=== PATIENT | male | born 1990 | race Caucasian/White ===

== ENCOUNTER 2017-05-28 17:10 | Inpatient (IN) | payer OTHER ==
[2017-05-28 18:18] LABS: Basophils % (A) 0 %; CH 31.3; CHCM 36.4; Eosinophils # (A) 0.1 k/uL (0-0.7); Eosinophils % (A) 1 %; HCT 39.3 % (39.0-53.0); HGB 14.7 gm/dL (13.0-17.5); Luc # (Auto) 0.12; Luc % (Auto) 1; Lymphocytes # (A) 2.1 k/uL (1.0-4.8); Lymphocytes % (A) 21 %; MCH 32.2 pg (25.0-35.0); MCHC 37.3 g/dL (31.0-37.0); MCV 86.4 fL (80.0-100.0); Mean Platelet Volume 7.8; Monocytes # (A) 0.5 k/uL (0-1.0); Monocytes % (A) 5 %; Neutrophils # (A) 7.3 k/uL (1.3-7.7); Neutrophils % (A) 72 %; RBC 4.55 m/uL (4.30-5.90); RDW 12.5 % (11.5-15.5); WBC 10.2 k/uL (3.8-10.6); WBC (Perox) 9.53
[2017-05-28 18:27] LABS: ALT 29 U/L (21-72); AST 17 U/L (17-59); Alkaline Phosphatase 80 U/L (38-126); Anion Gap 13 mmol/L; Blood Urea Nitrogen 19 mg/dL (9-20); Calcium 9.2 mg/dL (8.4-10.2); Carbon Dioxide 24 mmol/L (22-30); Chloride 101 mmol/L (98-107); Glucose 365 mg/dL (74-99); Non-African American GFR(MDRD) >60 (>60 ml/min/1.73 sqM); Potassium 4.3 mmol/L (3.5-5.1); Sodium 138 mmol/L (137-145); Total Bilirubin 0.4 mg/dL (0.2-1.3); Total Protein 6.8 g/dL (6.3-8.2)
--- NOTE | 2017-05-28 18:42 | XR ---
EXAMINATION TYPE: XR chest 2V DATE OF EXAM: 05/28/2017 COMPARISON: December 01, 2009 HISTORY: Left-sided neck swelling with change in voice and fixation of bubbles in upper chest. TECHNIQUE: Frontal and lateral views of the chest are obtained. FINDINGS: There is widespread subcutaneous emphysema over the right and left hemithorax and over the right upper extremity. There is also evidence of mediastinal emphysema. No definite pneumothorax. No pneumoperitoneum. The lungs appear to be clear bilaterally. The cardiac silhouette is unremarkable. The skeletal structures are unremarkable. IMPRESSION: WOULD ADVISE NONCONTRAST CHEST CT TO FULLY CHARACTERIZE THE AIR LEAK.
--- NOTE | 2017-05-28 19:46 | CT ---
EXAMINATION TYPE: CT chest wo con DATE OF EXAM: 05/28/2017 COMPARISON: Chest radiographs 05/28/2017 6:05 PM HISTORY: COUGH AND JUAREZ WITH CRACKLE UNDER SKIN TO CHEST AREA. NO KNOWN INJURY. CT DLP: 434.02 mGycm. Automated Exposure Control for Dose Reduction was Utilized. TECHNIQUE: CT scan of the thorax is performed without IV contrast. FINDINGS: There is a striking volume of subcutaneous emphysema throughout the chest circumferentiall y, with sparing of only the left posterior chest. There is a striking volume of associated pneumomedi astinum and intraspinal extramedullary air. There is subtle pneumopericardium. There is no definite abnormal gas collection in the visualized upper abdomen. There is no pneumothora x. Tracheobronchial anatomy appears to be intact. The lungs are clear and well expanded bilaterally, and the pleural spaces are negative. The skeletal structures are negative. IMPRESSION: WIDESPREAD ABNORMAL GAS COLLECTIONS.
--- NOTE | 2017-05-28 19:53 | CT ---
EXAMINATION TYPE: CT soft tissue neck wo con DATE OF EXAM: 05/28/2017 HISTORY: COUGH AND JUAREZ WITH CRACKLE UNDER SKIN TO CHEST AREA. NO KNOWN INJURY. COMPARISON: NONE CT DLP: 620.32 mGycm. Automated Exposure Control for Dose Reduction was Utilized. TECHNIQUE: Departmental protocol, with this CT neck study accompanying CT chest study. FINDINGS: There is a striking volume of symmetric and circumferential subcutaneous emphysema through out the soft tissues of the neck, dissecting throughout the bilateral adipose planes and extending up to the skull base. There is also associated intraspinal extramedullary air. Imaging extended up to include the posterior cranial fossa; there is no visualized intracranial air at this time. The airway appears intact. The skeletal structures and visualized paranasal sinuses and mastoid sinus air cells and middle ear c avities are intact. IMPRESSION: WIDESPREAD ABNORMAL GAS COLLECTIONS.
[2017-05-28] MEDS ORDERED: SODIUM CHLORIDE 0.9% 1,000 ML IV ONE (21:45)
[2017-05-28] MEDS ORDERED: VANCOMYCIN 1,000 MG in SODIUM CHLORIDE 0.9% 250 ML IVPB STA (21:45)
[2017-05-28] MEDS ORDERED: ONDANSETRON 4 MG/2 ML VIAL IVP PRN (22:06)
[2017-05-28] MEDS ORDERED: ACETAMINOPHEN TAB 325 MG TAB PO PRN (22:06)
[2017-05-28] MEDS ORDERED: NALOXONE 0.4 MG/ML 1 ML VIAL IV PRN (22:06)
[2017-05-28] MEDS: SODIUM CHLORIDE 0.9% 1,000 ML IV SCH (22:19)
--- NOTE | 2017-05-28 22:19 | ED ---
General Adult HPI - General Chief complaint: Shortness of Breath Stated complaint: JUAREZ,throat swelling Time Seen by Provider: 05/28/17 17:47 Source: patient, RN notes reviewed Mode of arrival: ambulatory Limitations: no limitations - History of Present Illness Initial comments: 26 yo male with past medical history of type 1 diabetes presents with a 2 day history of dry cough. Patient was found to have a fever in triage, however he denies fever or chills. Denies sick contacts. Patient presented for evaluation of neck swelling and change in his voice. Patient denies any choking episode, denies nausea or vomiting denies chest or neck trauma. Patient states he he was told by previous physician that he had some bronchial scarring. - Related Data Home Medications Medication Instructions Recorded Confirmed Insulin Aspart (For Pump) [NovoLOG See Protocol SQ-PUMP CONTINUOUS 05/28/17 (For Pump)] Allergies Allergy/AdvReac Type Severity Reaction Status Date / Time No Known Allergies Allergy Verified 05/28/17 19:17 Review of Systems ROS Statement: Those systems with pertinent positive or pertinent negative responses have been documented in the HPI. ROS Other: All systems not noted in ROS Statement are negative. Constitutional: Reports: chills Respiratory: Reports: cough, dyspnea Cardiovascular: Denies: chest pain Past Medical History Past Medical History: Diabetes Mellitus History of Any Multi-Drug Resistant Organisms: None Reported Additional Past Surgical History / Comment(s): eye surgery Past Psychological History: No Psychological Hx Reported Smoking Status: Never smoker Past Alcohol Use History: Rare Past Drug Use History: None Reported General Exam Limitations: no limitations General appearance: alert, in no apparent distress Head exam: Present: atraumatic, normocephalic Eye exam: Present: normal appearance, PERRL ENT exam: Present: mucous membranes moist Neck exam: Present: other (Diffuse subcutaneous air) Respiratory exam: Present: normal lung sounds bilaterally (Crackles throughout the upper chest insistent with subcutaneous air). Absent: respiratory distress , wheezes Cardiovascular Exam: Present: regular rate, normal rhythm GI/Abdominal exam: Present: soft. Absent: distended, tenderness Extremities exam: Present: normal capillary refill. Absent: pedal edema Neurological exam: Present: alert, oriented X3, CN II-XII intact. Absent: motor sensory deficit Psychiatric exam: Present: normal affect, normal mood Skin exam: Present: warm, dry, other (Crepitus throughout the neck, and upper chest). Absent: cyanosis, diaphoretic Course Vital Signs 05/28/17 05/28/17 05/28/17 17:30 18:33 18:40 Temperature 101.0 F H Pulse Rate 98 88 Respiratory 20 18 20 Rate Blood Pressure 137/74 127/85 O2 Sat by Pulse 94 L 100 Oximetry 05/28/17 05/28/17 19:20 21:14 Temperature 99.8 F H Pulse Rate 87 92 Respiratory 20 20 Rate Blood Pressure 136/86 146/83 O2 Sat by Pulse 100 20 L Oximetry - Reevaluation(s) Reevaluation #1: 05/28/17 22:15 Patient is reevaluated, there is no worsening of subcutaneous air, patient has normal vital signs and is in no distress EKG Findings - EKG Comments: EKG Findings:: EKG shows normal sinus rhythm with a ventricular rate 84, DE interval 150, QRS duration 80, QTc is 392, there is no ST segment elevation or depression Medical Decision Making - Medical Decision Making 26 male with 2 day history of cough. Patient has significant crepitus over the anterior chest and neck. Chest x-ray didn't reveals subcutaneous air with no signs of pneumothorax or focal pneumonia. CT of the chest without contrast shows subcutaneous air and within the chest wall, mediastinum, and within the spinal cord. Patient's only supporting history is cough. Denies trauma, denies vomiting or choking episode. Patient's neurological examination is nonfocal. He has no complaints of sensory or motor deficit in the lower extremities or bilateral upper extremities. Case is discussed with cardiothoracic surgery, there is no intervention needed at this time. Repeat chest x-ray will be obtained in the morning. Given the history of cough and fever the patient is given a dose antibiotics in the emergency department. He will be admitted for further evaluation. Diagnosis: Pneumomediastinum, subcutaneous emphysema, pneumopericardium - Lab Data Result diagrams: 05/28/17 17:45 05/28/17 17:45 Lab Results 05/28/17 05/28/17 05/28/17 Range/Units 17:45 17:45 18:41 WBC 10.2 (3.8-10.6) k/uL RBC 4.55 (4.30-5.90) m/uL Hgb 14.7 (13.0-17.5) gm/dL Hct 39.3 (39.0-53.0) % MCV 86.4 (80.0-100.0) fL MCH 32.2 (25.0-35.0) pg MCHC 37.3 H (31.0-37.0) g/dL RDW 12.5 (11.5-15.5) % Plt Count 274 (150-450) k/uL Neutrophils % 72 % Lymphocytes % 21 % Monocytes % 5 % Eosinophils % 1 % Basophils % 0 % Neutrophils # 7.3 (1.3-7.7) k/uL Lymphocytes # 2.1 (1.0-4.8) k/uL Monocytes # 0.5 (0-1.0) k/uL Eosinophils # 0.1 (0-0.7) k/uL Basophils # 0.0 (0-0.2) k/uL Sodium 138 (137-145) mmol/L Potassium 4.3 (3.5-5.1) mmol/L Chloride 101 (98-107) mmol/L Carbon Dioxide 24 (22-30) mmol/L Anion Gap 13 mmol/L BUN 19 (9-20) mg/dL Creatinine 0.90 (0.66-1.25) mg/dL Est GFR (MDRD) Af Amer >60 (>60 ml/min/1.73 sqM) Est GFR (MDRD) Non-Af >60 (>60 ml/min/1.73 sqM) Glucose 365 H (74-99) mg/dL Plasma Lactic Acid Saad 0.7 (0.7-2.0) mmol/L Calcium 9.2 (8.4-10.2) mg/dL Total Bilirubin 0.4 (0.2-1.3) mg/dL AST 17 (17-59) U/L ALT 29 (21-72) U/L Alkaline Phosphatase 80 (38-126) U/L Total Protein 6.8 (6.3-8.2) g/dL Albumin 4.3 (3.5-5.0) g/dL Disposition Clinical Impression: Subcutaneous emphysema, Pneumomediastinum Disposition: ADMITTED IP TO THIS [facility] Referrals: None,Stated [Primary Care Provider] - 1-2 days Decision to Admit Reason: Admit from EC Decision Date: 05/28/17 Decision Time: 22:00
[2017-05-28 23:10] VITALS: RESP 16
[2017-05-28] MEDS ORDERED: INSULIN PUMP BASAL RATES 1 EACH MISC MISCELLANE PRN (23:28)
[2017-05-28] MEDS ORDERED: INSPUCOR MISCELLANE PRN (23:28)
[2017-05-29 06:07] LABS: Glucose,Whole Blood 323 mg/dL (75-99)
[2017-05-29] MEDS: INSULIN PUMP MEAL BOLUS 1 UNIT MISC MISCELLANE SCH ×2 (07:15→13:12)
--- NOTE | 2017-05-29 08:14 | XR ---
EXAMINATION TYPE: XR chest 2V DATE OF EXAM: 05/29/2017 COMPARISON: 05/28/2017 HISTORY: 26-year-old male pneumothorax TECHNIQUE: Frontal and lateral views FINDINGS: The cardiomediastinal silhouette, aorta, and pulmonary vasculature are within normal limits. Diffuse subcutaneous emphysema along the right hemithorax extending to the bilateral base of the neck. Pneumo mediastinum and trace pneumopericardium redemonstrated. No appreciable pneumothorax. IMPRESSION: Subcutaneous emphysema with pneumomediastinum and trace pneumopericardium redemonstrated. No apprecia ble pneumothorax.
[2017-05-29 10:14] VITALS: BMI 16.4
--- NOTE | 2017-05-29 10:26 | P.GSCN ---
History of Present Illness Consult date: 05/29/17 Reason for Consult: Pneumomediastinum Requesting physician: Huang Spencer History of present illness: This a 26-year-old gentleman who does not follow with a primary care physician on a regular basis. He does have a past medical history of type 1 diabetes which he was diagnosed at age 3 and also has a history of hyperlipidemia. 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 On 05/25/2017 while working as a tig welder, he reports that he was accidentally knocked up against a cement wall on his right side when two coworkers were passing him in the hallway carrying a heavy object. On that Thursday afternoon he started complaining of some hoarseness. On 05/26/2017 the patient noticed some continued hoarseness, swelling in his neck and right cheek and developed a retching cough. Subsequently the swelling in his neck, hoarseness and coughing progressed and he presented here to the emergency department at [facility]. He does complain of some difficulty swallowing with some shortness of breath. He reports that he did have a upper respiratory infection in July 2016 which he was treated with antibiotics but states he really never got over the cough. The patient had a 12-lead EKG completed in the emergency department which showed normal sinus rhythm heart rate 84. He also had a 2 view chest x- ray completed which showed wide spread subcutaneous emphysema over the right and left hemithorax and over the right upper extremity. For further evaluation the patient also had a CT of the chest without contrast which demonstrated subcutaneous emphysema throughout the chest circumferentially and also drying demonstrated pneumomediastinum, subtle new mole pericardium and intraspinal extramedullary air. Dr. Carlos from cardiothoracic surgery was consulted for evaluation of the pneumomediastinum. Review of Systems 14 point review of systems was completed and was negative except for as noted in the HPI. Past Medical History Past Medical History: Diabetes Mellitus, Hyperlipidemia History of Any Multi-Drug Resistant Organisms: None Reported Additional Past Surgical History / Comment(s): Right eyelid surgery, cataract left eye. Past Anesthesia/Blood Transfusion Reactions: No Reported Reaction Past Psychological History: No Psychological Hx Reported Smoking Status: Never smoker Past Alcohol Use History: Rare Past Drug Use History: None Reported - Past Family History Mother Family Medical History: No Reported History Father Family Medical History: No Reported History Sister(s) Family Medical History: No Reported History Medications and Allergies Home Medications Medication Instructions Recorded Confirmed Type Insulin Aspart (For Pump) [NovoLOG See Protocol SQ-PUMP CONTINUOUS 05/28/17 History (For Pump)] Allergies Allergy/AdvReac Type Severity Reaction Status Date / Time No Known Allergies Allergy Verified 05/28/17 19:17 Surgical - Exam Vital Signs Temp Pulse Resp BP Pulse Ox 101.0 F H 98 20 137/74 94 L 05/28/17 17:30 05/28/17 17:30 05/28/17 17:30 05/28/17 17:30 05/28/17 17:30 - General Complaining of pain with palpation to his right chest, and right back just below his shoulder blade. no distress - Eyes PERRL, normal ocular movement - ENT normal nares, normal mucosa, no hearing loss, no congestion - Neck Swelling to his neck with subcutaneous emphysema. no masses, no bruits, trachea midline, no lymphadectomy, no venous distension - Respiratory Subcutaneous emphysema to his anterior chest worse on his right, with some pain to his right chest with palpitation. Subcutaneous emphysema to his right back. normal expansion, normal respiratory effort, clear to percussion, clear to auscultation - Cardiovascular Remote telemetry showing normal sinus rhythm. S1 and S2 negative for S3, gallop or murmur. Heart Rate: 88 Rhythm: regular - Abdomen Abdomen: soft, non tender, bowel sounds (Positive all 4 abdominal quadrants.) - Genitourinary Deferred - Rectum Deferred - Integumentary Tattoo to his left upper chest, right shoulder, and mid back. no rash, no growths, no abnormal pigmentation - Neurologic Alert and oriented 3, cranial nerves II through XII intact. normal coordination, normal sensation - Musculoskeletal normal gait, normal posture - Psychiatric oriented to time, oriented to person, oriented to place, speech is normal, memory intact Results - Labs 05/28/17 17:45 05/28/17 17:45 Abnormal Lab Results - Last 24 Hours (Table) 05/28/17 05/28/17 05/29/17 Range/Units 17:45 17:45 06:06 MCHC 37.3 H (31.0-37.0) g/dL Glucose 365 H (74-99) mg/dL POC Glucose (mg/dL) 323 H (75-99) mg/dL Diabetes panel 05/28/17 Range/Units 17:45 Sodium 138 (137-145) mmol/L Potassium 4.3 (3.5-5.1) mmol/L Chloride 101 (98-107) mmol/L Carbon Dioxide 24 (22-30) mmol/L BUN 19 (9-20) mg/dL Creatinine 0.90 (0.66-1.25) mg/dL Glucose 365 H (74-99) mg/dL Calcium 9.2 (8.4-10.2) mg/dL AST 17 (17-59) U/L ALT 29 (21-72) U/L Alkaline Phosphatase 80 (38-126) U/L Total Protein 6.8 (6.3-8.2) g/dL Albumin 4.3 (3.5-5.0) g/dL Calcium panel 05/28/17 Range/Units 17:45 Calcium 9.2 (8.4-10.2) mg/dL Albumin 4.3 (3.5-5.0) g/dL Pituitary panel 05/28/17 Range/Units 17:45 Sodium 138 (137-145) mmol/L Potassium 4.3 (3.5-5.1) mmol/L Chloride 101 (98-107) mmol/L Carbon Dioxide 24 (22-30) mmol/L BUN 19 (9-20) mg/dL Creatinine 0.90 (0.66-1.25) mg/dL Glucose 365 H (74-99) mg/dL Calcium 9.2 (8.4-10.2) mg/dL Adrenal panel 05/28/17 Range/Units 17:45 Sodium 138 (137-145) mmol/L Potassium 4.3 (3.5-5.1) mmol/L Chloride 101 (98-107) mmol/L Carbon Dioxide 24 (22-30) mmol/L BUN 19 (9-20) mg/dL Creatinine 0.90 (0.66-1.25) mg/dL Glucose 365 H (74-99) mg/dL Calcium 9.2 (8.4-10.2) mg/dL Total Bilirubin 0.4 (0.2-1.3) mg/dL AST 17 (17-59) U/L ALT 29 (21-72) U/L Alkaline Phosphatase 80 (38-126) U/L Total Protein 6.8 (6.3-8.2) g/dL Albumin 4.3 (3.5-5.0) g/dL - Imaging Chest x-ray: report reviewed, image reviewed CT scan - chest: report reviewed, image reviewed (Computed tomography scan of the neck report reviewed.) Assessment and Plan Plan: The patient was seen and examined at the bedside with Dr. Carlos. His chart and diagnostics were reviewed. It was discussed with the patient that he can be discharged when okay with primary care. He can be discharged home per cardiothoracic recommendations. He is to follow-up if any worsening of the subcu emphysema or shortness of breath. Time with Patient: Greater than 30
[2017-05-29 11:54] LABS: Glucose,Whole Blood 409 mg/dL (75-99)
[2017-05-29] MEDS: SODIUM CHLORIDE 0.9% 1,000 ML IV SCH (12:22)
[2017-05-29 12:50] VITALS: BP 130/66; PULSE 84; TEMP 98.3
--- NOTE | 2017-05-29 14:05 | P.DS ---
Providers Date of admission: 05/28/17 22:06 Attending physician: Rahul Mao MD Consults: 05/28/17 22:08 Consult Physician Urgent Consulting Provider: Jose E Carlos Consult Reason/Comments: Pneumomediastinum Do you want consulting provider notified?: Yes, Notify in am Primary care physician: Stated None Hospital Course: please refer to HPI Plan - Discharge Summary New Discharge Prescriptions: New Azithromycin [Zithromax Tri-Flaco] 500 mg PO DAILY #5 tab No Action Insulin Aspart (For Pump) [NovoLOG (For Pump)] See Protocol SQ-PUMP CONTINUOUS Discharge Medication List Insulin Aspart (For Pump) [NovoLOG (For Pump)] See Protocol SQ-PUMP CONTINUOUS 05/28/17 [History] Azithromycin [Zithromax Tri-Flaco] 500 mg PO DAILY #5 tab 05/29/17 [Rx] Follow up Appointment(s)/Referral(s): None,Stated [Primary Care Provider] - 1-2 days Discharge Disposition: HOME SELF-CARE
--- NOTE | 2017-05-29 14:05 | P.HPIM ---
History of Present Illness 26-year-old with history of type 1 diabetes mellitus on insulin pump came in with complaints of difficulty swallowing and short of breath, resolved at this point of time patient is found to have subcutaneous emphysema extensively along with pneumomediastinum and pneumothorax the subcutanous emphysema is extending up to the right side of the face and up to the upper abdomen inferiorly. Patient's symptoms started about 2 days ago when he started having up URI-like symptoms with sore throat and hoarseness of voice probably had laryngitis. And was coughing quite a bit which may have led to some self-limited airway injury which may have led to subcutaneous emphysema.and still has posterior pharyngeal erythema. vital signs stable. No significant lab abnormality except for pneumomediastinum. The patient was admitted to the cardiothoracic surgery and cleared for discharge and patient was asked to come back to the hospital if his symptoms get worseit patient is insulin-dependent diabetic does use insulin pump but hemoglobin A1c of 11 patient has a close appointment coming up with neurological surgery teacher. And his nonfunctional insulin pump site was addressed and patient will be discharged today. Prescribed azithromycin for upper respiratory infection including laryngitis.patient does not have any other signs or symptoms of sepsis at this point of time. Review of Systems REVIEW OF SYSTEMS: CONSTITUTIONAL: No fever, no malaise, no fatigue. HEENT: No recent visual problems or hearing problems. Denied any sore throat. CARDIOVASCULAR: No chest pain, orthopnea, PND, no palpitations, no syncope. PULMONARY: no hemoptysis. GASTROINTESTINAL: No diarrhea, no nausea, no vomiting, no abdominal pain. Normoactive bowel sounds. NEUROLOGICAL: No headaches, no weakness, no numbness. HEMATOLOGICAL: Denies any bleeding or petechiae. GENITOURINARY: Denies any burning micturition, frequency, or urgency. MUSCULOSKELETAL/RHEUMATOLOGICAL: Denies any joint pain, swelling, or any muscle pain. ENDOCRINE: Denies any polyuria or polydipsia. The rest of the 14-point review of systems is negative. Past Medical History Past Medical History: Diabetes Mellitus, Hyperlipidemia History of Any Multi-Drug Resistant Organisms: None Reported Additional Past Surgical History / Comment(s): Right eyelid surgery, cataract left eye. Past Anesthesia/Blood Transfusion Reactions: No Reported Reaction Past Psychological History: No Psychological Hx Reported Smoking Status: Never smoker Past Alcohol Use History: Rare Past Drug Use History: None Reported - Past Family History Mother Family Medical History: No Reported History Father Family Medical History: No Reported History Sister(s) Family Medical History: No Reported History Medications and Allergies Home Medications Medication Instructions Recorded Confirmed Type Insulin Aspart (For Pump) [NovoLOG See Protocol SQ-PUMP CONTINUOUS 05/28/17 History (For Pump)] Allergies Allergy/AdvReac Type Severity Reaction Status Date / Time No Known Allergies Allergy Verified 05/28/17 19:17 Physical Exam Vitals: Vital Signs Temp Pulse Pulse Resp BP BP Pulse Ox 05/29/17 12:00 98.3 F 84 16 130/66 97 05/29/17 08:00 98.1 F 91 16 138/74 98 05/29/17 04:00 97.4 F L 86 16 143/78 98 05/28/17 23:21 92 05/28/17 23:04 98.7 F 92 16 145/84 99 05/28/17 22:25 86 20 123/91 99 05/28/17 21:14 92 20 146/83 100 05/28/17 19:20 99.8 F H 87 20 136/86 100 05/28/17 18:40 20 05/28/17 18:33 88 18 127/85 100 05/28/17 17:30 101.0 F H 98 20 137/74 94 L Intake and Output 05/28/17 05/29/17 05/29/17 22:59 06:59 14:59 Intake Total 375 1175 Balance 375 1175 Intake: IV 100 [id number] 1,000 mg In 100 Sodium Chloride 0.9% 50 ml @ 100 mls/hr IVPB ONCE STA Rx#:[id number] Amount of Fluid Infused ( 200 ml) Intake, IV Titration 75 375 Amount Sodium Chloride 0.9% 1, 75 375 000 ml @ 75 mls/hr IV . [id number] [facility] Rx#:[id number] Oral 800 Other: # Voids 1 1 Weight 52.163 kg 47.5 kg 47.5 kg Patient Weight 05/30/17 06:59 Weight 47.5 kg PHYSICAL EXAMINATION: GENERAL: The patient is alert and oriented x3, not in any acute distress. Well developed, well nourished. HEENT: Pupils are round and equally reacting to light. EOMI. No scleral icterus. No conjunctival pallor. Normocephalic, atraumatic. No pharyngeal erythema. No thyromegaly. he has extensive subcutaneous emphysema as described in the HPI along with crepitus heard all over the chest predominantly on the left side CARDIOVASCULAR: S1 and S2 present. No murmurs, rubs, or gallops. PULMONARY: Chest is clear to auscultation, no wheezing or crackles. ABDOMEN: Soft, nontender, nondistended, normoactive bowel sounds. No palpable organomegaly. MUSCULOSKELETAL: No joint swelling or deformity. EXTREMITIES: No cyanosis, clubbing, or pedal edema. NEUROLOGICAL: Gross neurological examination did not reveal any focal deficits. SKIN: No rashes. Results CBC & Chem 7: 05/28/17 17:45 05/28/17 17:45 Labs: Abnormal Lab Results - Last 24 Hours (Table) 05/28/17 05/28/17 05/28/17 Range/Units 17:45 17:45 17:45 MCHC 37.3 H (31.0-37.0) g/dL Glucose 365 H (74-99) mg/dL POC Glucose (mg/dL) (75-99) mg/dL Hemoglobin A1c 11.0 H (4.2-6.1) % 05/29/17 05/29/17 Range/Units 06:06 11:47 MCHC (31.0-37.0) g/dL Glucose (74-99) mg/dL POC Glucose (mg/dL) 323 H 409 H (75-99) mg/dL Hemoglobin A1c (4.2-6.1) % Thrombosis Risk Factor Assmnt - Choose All That Apply Any of the Below Risk Factors Present?: No Other Risk Factors: No Other congenital or acquired thrombophilia - If yes, enter type in comment: No Thrombosis Risk Factor Assessment Level: Very Low Risk Assessment and Plan Plan: #1 extensive subcutaneous emphysema and pneumomediastinum and pneumothorax: Patient was evaluated by cardiac thoracic surgery and patient is clinically stable and is being discharged today. Patient may have had self-limited airway injury into this extensive saphenous emphysema. 2 pharyngitis and laryngitis: Patient will prescribe azithromycin patient's symptoms are already improving including his hoarseness of voice. #3 type 1 diabetes mellitus: Patient is not in DKA and patient will be discharged today excessive counseling regarding insulin and diet were provided. #4 nicotine abuse: Counseled was provided
== END 2017-05-29 15:17 | disposition home or self-care (01) | DRG 201 ==
LOC: EC 17:10 → 6SEL 22:06
PROVIDERS: ADMIT Internal Medicine; ATTEND Internal Medicine
DX: J98.2 Interstitial emphysema (principal); E10.9 Type 1 diabetes mellitus without complications; E78.5 Hyperlipidemia, unspecified; J04.0 Acute laryngitis; Z79.4 Long term (current) use of insulin; Z96.41 Presence of insulin pump (external) (internal)
CPT/HCPCS: 36415; 70490; 71020; 71250; 80053; 83036; 83605; 85025; 87040; 93005

== ENCOUNTER 2017-08-04 23:16 | Emergency (ER) | payer OTHER ==
[2017-08-04 23:32] LABS: Glucose,Whole Blood 583 mg/dL (75-99)
[2017-08-04] MEDS ORDERED: SODIUM CHLORIDE 0.9% 500 ML IV STA (23:41)
[2017-08-04] MEDS ORDERED: SODIUM CHLORIDE 0.9% 1,000 ML IV STA (23:41)
[2017-08-04] MEDS ORDERED: INSULIN REGULAR 100 UNIT/ML VIAL IV ONE (23:42)
[2017-08-04 23:58] LABS: Appearance,Urine Clear (Clear); Basophils # (A) 0.1 k/uL (0-0.2); Basophils % (A) 1 %; Bilirubin,Urine Negative (Negative); CH 32.2; CHCM 35.5; Eosinophils # (A) 0.1 k/uL (0-0.7); Eosinophils % (A) 2 %; Glucose,Urine (UA) 4+ (Negative); HCT 40.3 % (39.0-53.0); HDW 2.74; HGB 13.6 gm/dL (13.0-17.5); Ketones,Urine Negative (Negative); Leukocyte Esterase,Urine Negative (Negative); Luc # (Auto) 0.13; Luc % (Auto) 2; Lymphocytes # (A) 2.1 k/uL (1.0-4.8); Lymphocytes % (A) 33 %; MCH 30.6 pg (25.0-35.0); MCHC 33.7 g/dL (31.0-37.0); MCV 90.9 fL (80.0-100.0); Monocytes # (A) 0.4 k/uL (0-1.0); Monocytes % (A) 6 %; Neutrophils # (A) 3.5 k/uL (1.3-7.7); Neutrophils % (A) 56 %; Nitrite,Urine Negative (Negative); Protein,Urine Negative (Negative); RBC 4.43 m/uL (4.30-5.90); Specific Gravity,Urine 1.016 (1.001-1.035); UA Billing (MACRO vs. MICRO) CHEM; Urobilinogen,Urine <2.0 mg/dL (<2.0); WBC 6.2 k/uL (3.8-10.6); WBC (Perox) 6.34
[2017-08-05 00:07] LABS: ALT 38 U/L (21-72); AST 23 U/L (17-59); Alkaline Phosphatase 70 U/L (38-126); Anion Gap 9 mmol/L; Blood Urea Nitrogen 24 mg/dL (9-20); Calcium 9.4 mg/dL (8.4-10.2); Carbon Dioxide 25 mmol/L (22-30); Chloride 95 mmol/L (98-107); Magnesium 1.8 mg/dL (1.6-2.3); Non-African American GFR(MDRD) >60 (>60 ml/min/1.73 sqM); Phosphorous 3.4 mg/dL (2.5-4.5); Potassium 4.6 mmol/L (3.5-5.1); Sodium 129 mmol/L (137-145); Total Bilirubin 0.6 mg/dL (0.2-1.3); Total Protein 6.4 g/dL (6.3-8.2)
[2017-08-05 00:16] LABS: Glucose 638 mg/dL (74-99)
--- NOTE | 2017-08-05 00:40 | ED ---
General Adult HPI - General Chief complaint: Recheck/Abnormal Lab/Rx Stated complaint: Diabetes - Hyperglycemia Time Seen by Provider: 08/04/17 23:38 Source: patient, RN notes reviewed, old records reviewed Mode of arrival: ambulatory Limitations: no limitations - History of Present Illness Initial comments: This is a 26 male to the ED co weakness, NV, hyperglycemia. Patient has history of diabetes on insulin pump. Has been feeling weak and BS been elevated all day. Patient denies abd pain, no fever, no chest pain, no sob. No recent change of medications, no drugs or alcohol. - Related Data Home Medications Medication Instructions Recorded Confirmed Insulin Aspart (For Pump) [NovoLOG See Protocol SQ-PUMP CONTINUOUS 05/28/17 (For Pump)] Allergies Allergy/AdvReac Type Severity Reaction Status Date / Time No Known Allergies Allergy Verified 08/04/17 23:39 Review of Systems ROS Statement: Those systems with pertinent positive or pertinent negative responses have been documented in the HPI. ROS Other: All systems not noted in ROS Statement are negative. Past Medical History Past Medical History: Diabetes Mellitus, Hyperlipidemia History of Any Multi-Drug Resistant Organisms: None Reported Additional Past Surgical History / Comment(s): Right eyelid surgery, cataract left eye. Past Anesthesia/Blood Transfusion Reactions: No Reported Reaction Past Psychological History: No Psychological Hx Reported Smoking Status: Never smoker Past Alcohol Use History: Rare Past Drug Use History: None Reported - Past Family History Mother Family Medical History: No Reported History Father Family Medical History: No Reported History Sister(s) Family Medical History: No Reported History General Exam Limitations: no limitations General appearance: alert, in no apparent distress Head exam: Present: atraumatic, normocephalic, normal inspection Eye exam: Present: normal appearance, PERRL, EOMI. Absent: scleral icterus, conjunctival injection, periorbital swelling ENT exam: Present: normal exam, mucous membranes moist Neck exam: Present: normal inspection. Absent: tenderness, meningismus, lymphadenopathy Respiratory exam: Present: normal lung sounds bilaterally. Absent: respiratory distress, wheezes, rales, rhonchi, stridor Cardiovascular Exam: Present: regular rate, normal rhythm, normal heart sounds. Absent: systolic murmur, diastolic murmur, rubs, gallop, clicks GI/Abdominal exam: Present: soft, normal bowel sounds. Absent: distended, tenderness, guarding, rebound, rigid Extremities exam: Present: normal inspection, full ROM, normal capillary refill. Absent: tenderness, pedal edema, joint swelling, calf tenderness Back exam: Present: normal inspection Neurological exam: Present: alert, oriented X3, CN II-XII intact Psychiatric exam: Present: normal affect, normal mood Skin exam: Present: warm, dry, intact, normal color. Absent: rash Course Vital Signs 08/04/17 08/05/17 23:26 01:04 Temperature 97.2 F L 97.5 F L Pulse Rate 87 77 Respiratory 18 18 Rate Blood Pressure 135/80 132/85 O2 Sat by Pulse 98 98 Oximetry - Reevaluation(s) Reevaluation #1: 08/05/17 01:43 symptoms resolved EKG Findings - EKG Comments: EKG Findings:: EKG shows normal sinus rhythm rate of 78, MT 170, QRS 84, QTC 394 Medical Decision Making - Medical Decision Making 26 male to the ED co N, V weakness and dehydration, inc blood sugar, symptoms resolved and improved, blood sugar normal labs improved, ok for discharge home - Lab Data Result diagrams: 08/04/17 23:47 08/04/17 23:47 Lab Results 08/04/17 08/04/17 08/04/17 Range/Units 23:30 23:47 23:47 WBC 6.2 (3.8-10.6) k/uL RBC 4.43 (4.30-5.90) m/uL Hgb 13.6 (13.0-17.5) gm/dL Hct 40.3 (39.0-53.0) % MCV 90.9 (80.0-100.0) fL MCH 30.6 (25.0-35.0) pg MCHC 33.7 (31.0-37.0) g/dL RDW 13.0 (11.5-15.5) % Plt Count 231 (150-450) k/uL Neutrophils % 56 % Lymphocytes % 33 % Monocytes % 6 % Eosinophils % 2 % Basophils % 1 % Neutrophils # 3.5 (1.3-7.7) k/uL Lymphocytes # 2.1 (1.0-4.8) k/uL Monocytes # 0.4 (0-1.0) k/uL Eosinophils # 0.1 (0-0.7) k/uL Basophils # 0.1 (0-0.2) k/uL Sodium 129 L (137-145) mmol/L Potassium 4.6 (3.5-5.1) mmol/L Chloride 95 L (98-107) mmol/L Carbon Dioxide 25 (22-30) mmol/L Anion Gap 9 mmol/L BUN 24 H (9-20) mg/dL Creatinine 1.00 (0.66-1.25) mg/dL Est GFR (MDRD) Af Amer >60 (>60 ml/min/1.73 sqM) Est GFR (MDRD) Non-Af >60 (>60 ml/min/1.73 sqM) Glucose 638 H* (74-99) mg/dL POC Glucose (mg/dL) 583 H (75-99) mg/dL POC Glu Melting Supervisor ID Sheila Mcneill Calcium 9.4 (8.4-10.2) mg/dL Phosphorus 3.4 (2.5-4.5) mg/dL Magnesium 1.8 (1.6-2.3) mg/dL Total Bilirubin 0.6 (0.2-1.3) mg/dL AST 23 (17-59) U/L ALT 38 (21-72) U/L Alkaline Phosphatase 70 (38-126) U/L Total Protein 6.4 (6.3-8.2) g/dL Albumin 3.9 (3.5-5.0) g/dL Urine Color Urine Appearance (Clear) Urine pH (5.0-8.0) Ur Specific [place] (1.001-1.035) Urine Protein (Negative) Urine Glucose (UA) (Negative) Urine Ketones (Negative) Urine Blood (Negative) Urine Nitrite (Negative) Urine Bilirubin (Negative) Urine Urobilinogen (<2.0) mg/dL Ur Leukocyte Esterase (Negative) 08/04/17 08/05/17 08/05/17 Range/Units 23:47 00:55 01:35 WBC (3.8-10.6) k/uL RBC (4.30-5.90) m/uL Hgb (13.0-17.5) gm/dL Hct (39.0-53.0) % MCV (80.0-100.0) fL MCH (25.0-35.0) pg MCHC (31.0-37.0) g/dL RDW (11.5-15.5) % Plt Count (150-450) k/uL Neutrophils % % Lymphocytes % % Monocytes % % Eosinophils % % Basophils % % Neutrophils # (1.3-7.7) k/uL Lymphocytes # (1.0-4.8) k/uL Monocytes # (0-1.0) k/uL Eosinophils # (0-0.7) k/uL Basophils # (0-0.2) k/uL Sodium (137-145) mmol/L Potassium (3.5-5.1) mmol/L Chloride (98-107) mmol/L Carbon Dioxide (22-30) mmol/L Anion Gap mmol/L BUN (9-20) mg/dL Creatinine (0.66-1.25) mg/dL Est GFR (MDRD) Af Amer (>60 ml/min/1.73 sqM) Est GFR (MDRD) Non-Af (>60 ml/min/1.73 sqM) Glucose (74-99) mg/dL POC Glucose (mg/dL) 310 H 202 H (75-99) mg/dL POC Glu Melting Supervisor ID Brodie, Evelyn Brodie, Evelyn Calcium (8.4-10.2) mg/dL Phosphorus (2.5-4.5) mg/dL Magnesium (1.6-2.3) mg/dL Total Bilirubin (0.2-1.3) mg/dL AST (17-59) U/L ALT (21-72) U/L Alkaline Phosphatase (38-126) U/L Total Protein (6.3-8.2) g/dL Albumin (3.5-5.0) g/dL Urine Color Colorless Urine Appearance Clear (Clear) Urine pH 7.0 (5.0-8.0) Ur Specific [place] 1.016 (1.001-1.035) Urine Protein Negative (Negative) Urine Glucose (UA) 4+ H (Negative) Urine Ketones Negative (Negative) Urine Blood Negative (Negative) Urine Nitrite Negative (Negative) Urine Bilirubin Negative (Negative) Urine Urobilinogen <2.0 (<2.0) mg/dL Ur Leukocyte Esterase Negative (Negative) Disposition Clinical Impression: Hyperglycemia Disposition: HOME SELF-CARE Condition: Good Referrals: None,Stated [Primary Care Provider] - 1-2 days
[2017-08-05] MEDS ORDERED: INSULIN REGULAR 100 UNIT/ML VIAL IV ONE (00:53)
[2017-08-05] MEDS ORDERED: INSULIN REGULAR 100 UNIT/ML VIAL SQ ONE (00:53)
[2017-08-05] MEDS ORDERED: SODIUM CHLORIDE 0.9% 1,000 ML IV STA (00:53)
[2017-08-05 00:56] LABS: Glucose,Whole Blood 310 mg/dL (75-99)
[2017-08-05 01:05] VITALS: TEMP 97.5
[2017-08-05 01:37] LABS: Glucose,Whole Blood 202 mg/dL (75-99)
[2017-08-05 02:34] VITALS: BP 116/67; PULSE 78; RESP 16
== END 2017-08-05 02:37 | disposition home or self-care (01) ==
LOC: EC 23:16
DX: E11.65 Type 2 diabetes mellitus with hyperglycemia (principal); Z79.4 Long term (current) use of insulin
CPT/HCPCS: 36415; 80053; 81003; 83735; 84100; 85025; 87086; 93005; 96360; 96361; 99285

== ENCOUNTER 2021-04-10 23:45 | Emergency (ER) | payer OTHER ==
[2021-04-11] MEDS ORDERED: guaiFENesin-DM 600/30MG 1 EACH TAB.ER.12H PO ONE (00:45)
--- NOTE | 2021-04-11 01:54 | XR ---
EXAM: XR Chest, 1 View CLINICAL HISTORY: ITS.REASON XR Reason: Cough TECHNIQUE: Frontal view of the chest. COMPARISON: February 25, 2021 FINDINGS: Lungs: Unremarkable. No acute infiltration, atelectasis or mass. Pleural space: Unremarkable. No pneumothorax or pleural fluid. Heart: Unremarkable. No cardiomegaly. Mediastinum: Unremarkable. Bones/joints: No acute findings. IMPRESSION: Negative chest x-ray.
[2021-04-11] MEDS ORDERED: AZITHROMYCIN 500 MG TAB PO STA (01:56)
--- NOTE | 2021-04-11 01:56 | ED ---
URI HPI - General Chief Complaint: Upper Respiratory Infection Stated Complaint: URI Time Seen by Provider: 04/11/21 00:14 Source: patient, family Mode of arrival: ambulatory Limitations: no limitations - History of Present Illness Initial Comments: 30 year-old male patient, Type I Diabetic, presents to the emergency department for evaluation of cough and congestion. States that he has had symptoms for the last week. States that he did go to [facility] and was diagnosed with a sinus infection, was started on Tessalon Perles. States today that he started coughing this evening and cannot stop. Denies any chest pain or shortness of breath. Denies any sore throat. Nausea or vomiting. Denies diarrhea. Patient denies any recent rash, abdominal pain, constipation, back pain, numbness, tingling, dizziness, weakness, hematuria, dysuria, urinary urgency, urinary frequency, headache, visual changes, or any other complaints. - Related Data Home Medications Medication Instructions Recorded Confirmed Insulin Aspart (For Pump) [NovoLOG See Protocol SQ-PUMP CONTINUOUS 05/28/17 08/04/17 (For Pump)] Previous Rx's Medication Instructions Recorded Azithromycin [Zithromax Z-pack (6 0 mg PO DIRECTED #6 tab 04/11/21 tabs)] guaiFENesin-DM 600/30MG [Mucinex 1 each PO Q12HR #10 tab.er.12h 04/11/21 Dm] Allergies Allergy/AdvReac Type Severity Reaction Status Date / Time No Known Allergies Allergy Verified 04/11/21 00:02 Review of Systems ROS Statement: Those systems with pertinent positive or pertinent negative responses have been documented in the HPI. ROS Other: All systems not noted in ROS Statement are negative. Past Medical History Past Medical History: Diabetes Mellitus, Hyperlipidemia History of Any Multi-Drug Resistant Organisms: None Reported Additional Past Surgical History / Comment(s): Right eyelid surgery, cataract left eye. Past Anesthesia/Blood Transfusion Reactions: No Reported Reaction Past Psychological History: No Psychological Hx Reported Smoking Status: Never smoker Past Alcohol Use History: Rare Past Drug Use History: None Reported - Past Family History Mother Family Medical History: No Reported History Father Family Medical History: No Reported History Sister(s) Family Medical History: No Reported History General Exam Limitations: no limitations General appearance: alert, in no apparent distress, other (this well-developed, well-nourished adult male patient in no acute distress) Eye exam: Present: normal appearance, PERRL, EOMI. Absent: scleral icterus, conjunctival injection, periorbital swelling ENT exam: Present: normal exam, normal oropharynx, mucous membranes moist Respiratory exam: Present: normal lung sounds bilaterally. Absent: respiratory distress, wheezes, rales, rhonchi, stridor Cardiovascular Exam: Present: regular rate, normal rhythm, normal heart sounds. Absent: systolic murmur, diastolic murmur, rubs, gallop, clicks GI/Abdominal exam: Present: soft, normal bowel sounds. Absent: distended, tenderness, guarding, rebound, rigid Neurological exam: Present: alert, oriented X3, CN II-XII intact Psychiatric exam: Present: normal affect, normal mood Skin exam: Present: warm, dry, intact, normal color. Absent: rash Course Vital Signs 04/10/21 04/11/21 23:53 02:15 Temperature 98.8 F 98.3 F Pulse Rate 99 92 Respiratory 18 16 Rate Blood Pressure 132/72 127/69 O2 Sat by Pulse 95 96 Oximetry Medical Decision Making - Medical Decision Making 30 year-old male patient presents for evaluation of cough and congestion. Physical examination revealed clear, equal lung sounds, no respiratory distress. Chest x-rays negative. He tested negative for COVID-19. was given Mucinex DM. Upon reevaluation is resting comfortably in bed. We will give prescription for azithromycin and Mucinex. He is instructed to follow-up his primary care physician for recheck in 1-2 days. Return parameters were discussed in detail. He verbalizes understanding and agrees with this plan. My attending is Dr. Jimenez. - Lab Data Lab Results 04/11/21 Range/Units 00:39 Coronavirus (PCR) Not Detected (Not Detectd) - Radiology Data Radiology results: report reviewed, image reviewed Negative chest x-ray. Disposition Clinical Impression: Viral upper respiratory illness Disposition: HOME SELF-CARE Condition: Good Instructions (If sedation given, give patient instructions): Upper Respiratory Infection (ED) Additional Instructions: Take medications as directed. Follow up with your primary care physician for recheck in 1-2 days. Return for any new, worsening, or concerning symptoms. Prescriptions: guaiFENesin-DM 600/30MG [Mucinex Dm] 1 each PO Q12HR #10 tab.er.12h Azithromycin [Zithromax Z-pack (6 tabs)] 0 mg PO DIRECTED #6 tab Is patient prescribed a controlled substance at d/c from ED?: No Referrals: None,Stated [Primary Care Provider] - 1-2 days Time of Disposition: 01:56
[2021-04-11 02:19] VITALS: BP 127/69; PULSE 92; RESP 16; TEMP 98.3
== END 2021-04-11 02:15 | disposition home or self-care (01) ==
LOC: EC 23:45
DX: J06.9 Acute upper respiratory infection, unspecified (principal); B97.89 Other viral agents as the cause of diseases classified elsewhere; E10.9 Type 1 diabetes mellitus without complications; E78.5 Hyperlipidemia, unspecified; Z20.822 Contact with and (suspected) exposure to COVID-19
CPT/HCPCS: 71045; 87635; 99283

== ENCOUNTER 2021-06-06 19:58 | Emergency (ER) | payer OTHER ==
[2021-06-06 20:03] VITALS: BP 132/77; PULSE 73; RESP 18; TEMP 98.2
[2021-06-06 20:17] LABS: Glucose,Whole Blood 62 mg/dL (75-99)
[2021-06-06 20:50] LABS: ALT 22 U/L (4-49); AST 35 U/L (17-59); African American GFR (CKD) >90 (>60 ml/min/1.73 sqM); Albumin 4.6 g/dL (3.5-5.0); Alkaline Phosphatase 85 U/L (38-126); Anion Gap 9 mmol/L; Blood Urea Nitrogen 16 mg/dL (9-20); Calcium 9.4 mg/dL (8.4-10.2); Carbon Dioxide 24 mmol/L (22-30); Chloride 106 mmol/L (98-107); Glucose 76 mg/dL (74-99); Non-African American GFR(CKD) >90 (>60 ml/min/1.73 sqM); Potassium 4.4 mmol/L (3.5-5.1); Sodium 139 mmol/L (137-145); Total Bilirubin 0.7 mg/dL (0.2-1.3); Total Protein 7.6 g/dL (6.3-8.2)
[2021-06-06 20:52] LABS: Basophils % (A) 0 %; Eosinophils # (A) 0.2 k/uL (0-0.7); Eosinophils % (A) 2 %; HCT 43.9 % (39.0-53.0); HGB 14.6 gm/dL (13.0-17.5); Lymphocytes # (A) 2.1 k/uL (1.0-4.8); Lymphocytes % (A) 21 %; MCHC 33.1 g/dL (31.0-37.0); MCV 93.5 fL (80.0-100.0); Mean Platelet Volume 9.9; Monocytes # (A) 0.5 k/uL (0-1.0); Monocytes % (A) 5 %; Neutrophils % (A) 71 %; RDW 12.7 % (11.5-15.5); WBC 9.9 k/uL (3.8-10.6)
--- NOTE | 2021-06-06 21:04 | XR ---
EXAMINATION: XR chest 2V DATE AND TIME: 06/06/2021 8:45 PM CLINICAL INDICATION: PHH; cough TECHNIQUE: PA and lateral views COMPARISON: 04/11/2021 FINDINGS: The lungs are clear. The pleural spaces are negative. The cardiac silhouette is not enlarged. The remainder of the mediastinal silhouette is unremarkable. The skeletal structures and soft tissues are negative for acute findings. IMPRESSION: NO ACUTE PROCESS.
--- NOTE | 2021-06-06 21:06 | ED ---
URI HPI - General Chief Complaint: Upper Respiratory Infection Stated Complaint: weakness Time Seen by Provider: 06/06/21 20:14 Source: patient Mode of arrival: ambulatory - History of Present Illness Initial Comments: 30-year-old male with type 1 diabetes presents to the emergency department with chief complaint of sinus congestion and weakness. Patient reports over the last 2 days he been progressively weaker. States since yesterday began to develop sinus congestion and clear bilaterally rhinorrhea. Does report intermittent dry cough. He also reports some lower abdominal pain but denies any nausea or vomiting. Denies any diarrhea but states his stool marco a worse than usual. Denies hematuria, hematochezia or melena. Not a smoker. Denies chest pain or shortness of breath. - Related Data Home Medications Medication Instructions Recorded Confirmed Insulin Aspart (For Pump) [NovoLOG See Protocol SQ-PUMP CONTINUOUS 05/28/17 0 08/04/17 (For Pump)] Previous Rx's Medication Instructions Recorded Azithromycin [Zithromax Z-pack (6 0 mg PO DIRECTED #6 tab 04/11/21 tabs)] guaiFENesin-DM 600/30MG [Mucinex 1 each PO Q12HR #10 tab.er.12h 04/11/21 Dm] Allergies Allergy/AdvReac Type Severity Reaction Status Date / Time No Known Allergies Allergy Verified 06/06/21 20:03 Review of Systems ROS Statement: Those systems with pertinent positive or pertinent negative responses have been documented in the HPI. ROS Other: All systems not noted in ROS Statement are negative. Past Medical History Past Medical History: Diabetes Mellitus, Hyperlipidemia History of Any Multi-Drug Resistant Organisms: None Reported Additional Past Surgical History / Comment(s): Right eyelid surgery, cataract left eye. Past Anesthesia/Blood Transfusion Reactions: No Reported Reaction Past Psychological History: No Psychological Hx Reported Smoking Status: Never smoker Past Alcohol Use History: Rare Past Drug Use History: None Reported - Past Family History Mother Family Medical History: No Reported History Father Family Medical History: No Reported History Sister(s) Family Medical History: No Reported History General Exam Limitations: no limitations General appearance: alert, in no apparent distress Head exam: Present: atraumatic, normocephalic, normal inspection Eye exam: Present: normal appearance, PERRL, EOMI Pupils: Present: normal accommodation ENT exam: Present: normal exam, normal oropharynx, mucous membranes moist Neck exam: Present: normal inspection, full ROM. Absent: tenderness, lymphadenopathy Respiratory exam: Present: normal lung sounds bilaterally. Absent: respiratory distress, wheezes, rales, rhonchi, stridor Cardiovascular Exam: Present: regular rate, normal rhythm, normal heart sounds. Absent: systolic murmur GI/Abdominal exam: Present: soft. Absent: distended, tenderness, guarding, rebound, rigid Extremities exam: Present: normal inspection, full ROM, normal capillary refill. Absent: tenderness, pedal edema, joint swelling Back exam: Present: normal inspection, full ROM. Absent: tenderness, CVA tender ness (R), CVA tenderness (L) Neurological exam: Present: alert, oriented X3 Psychiatric exam: Present: normal affect, normal mood Skin exam: Present: warm, dry, intact, normal color Course Vital Signs 06/06/21 19:59 Temperature 98.2 F Pulse Rate 73 Respiratory 18 Rate Blood Pressure 132/77 O2 Sat by Pulse 96 Oximetry Medical Decision Making - Medical Decision Making 30-year-old male with type 1 diabetes presents to the emergency department with chief complaint of sinus congestion and weakness. On physical examination, no acute findings. Accu-Chek reveals a blood glucose of 63. Patient was given food and chocolate milk. Chest x-ray is unremarkable. Laboratory work shows no acute findings. Not able to give a urine sample. On reevaluation, he reports improvement in symptoms. I advised him to follow with her [facility] certified concierge. Return parameters were thoroughly discussed the patient was understanding and agreeable. Case is discussed with physician. - Lab Data Result diagrams: 06/06/21 20:33 06/06/21 20:33 Lab Results 06/06/21 06/06/21 06/06/21 Range/Units 20:15 20:33 20:33 WBC 9.9 (3.8-10.6) k/uL RBC 4.70 (4.30-5.90) m/uL Hgb 14.6 (13.0-17.5) gm/dL Hct 43.9 (39.0-53.0) % MCV 93.5 (80.0-100.0) fL MCH 31.0 (25.0-35.0) pg MCHC 33.1 (31.0-37.0) g/dL RDW 12.7 (11.5-15.5) % Plt Count 69 L (150-450) k/uL MPV 9.9 Neutrophils % 71 % Lymphocytes % 21 % Monocytes % 5 % Eosinophils % 2 % Basophils % 0 % Neutrophils # 7.0 (1.3-7.7) k/uL Lymphocytes # 2.1 (1.0-4.8) k/uL Monocytes # 0.5 (0-1.0) k/uL Eosinophils # 0.2 (0-0.7) k/uL Basophils # 0.0 (0-0.2) k/uL Manual Slide Review Performed Sodium 139 (137-145) mmol/L Potassium 4.4 (3.5-5.1) mmol/L Chloride 106 (98-107) mmol/L Carbon Dioxide 24 (22-30) mmol/L Anion Gap 9 mmol/L BUN 16 (9-20) mg/dL Creatinine 1.08 (0.66-1.25) mg/dL Est GFR (CKD-EPI)AfAm >90 (>60 ml/min/1.73 sqM) Est GFR (CKD-EPI)NonAf >90 (>60 ml/min/1.73 sqM) Glucose 76 (74-99) mg/dL POC Glucose (mg/dL) 62 L (75-99) mg/dL POC Glu Concrete Pump Operator Helper ID Gal Paige Calcium 9.4 (8.4-10.2) mg/dL Total Bilirubin 0.7 (0.2-1.3) mg/dL AST 35 (17-59) U/L ALT 22 (4-49) U/L Alkaline Phosphatase 85 (38-126) U/L Total Protein 7.6 (6.3-8.2) g/dL Albumin 4.6 (3.5-5.0) g/dL Coronavirus (PCR) (Not Detectd) 06/06/21 Range/Units 20:33 WBC (3.8-10.6) k/uL RBC (4.30-5.90) m/uL Hgb (13.0-17.5) gm/dL Hct (39.0-53.0) % MCV (80.0-100.0) fL MCH (25.0-35.0) pg MCHC (31.0-37.0) g/dL RDW (11.5-15.5) % Plt Count (150-450) k/uL MPV Neutrophils % % Lymphocytes % % Monocytes % % Eosinophils % % Basophils % % Neutrophils # (1.3-7.7) k/uL Lymphocytes # (1.0-4.8) k/uL Monocytes # (0-1.0) k/uL Eosinophils # (0-0.7) k/uL Basophils # (0-0.2) k/uL Manual Slide Review Sodium (137-145) mmol/L Potassium (3.5-5.1) mmol/L Chloride (98-107) mmol/L Carbon Dioxide (22-30) mmol/L Anion Gap mmol/L BUN (9-20) mg/dL Creatinine (0.66-1.25) mg/dL Est GFR (CKD-EPI)AfAm (>60 ml/min/1.73 sqM) Est GFR (CKD-EPI)NonAf (>60 ml/min/1.73 sqM) Glucose (74-99) mg/dL POC Glucose (mg/dL) (75-99) mg/dL POC Glu Concrete Pump Operator Helper ID Calcium (8.4-10.2) mg/dL Total Bilirubin (0.2-1.3) mg/dL AST (17-59) U/L ALT (4-49) U/L Alkaline Phosphatase (38-126) U/L Total Protein (6.3-8.2) g/dL Albumin (3.5-5.0) g/dL Coronavirus (PCR) Not Detected (Not Detectd) Disposition Clinical Impression: Upper respiratory tract infection Disposition: HOME SELF-CARE Condition: Stable Instructions (If sedation given, give patient instructions): Upper Respiratory Infection (ED) Additional Instructions: Please return to the Emergency Department if symptoms worsen or any other concerns. Is patient prescribed a controlled substance at d/c from ED?: No Referrals: None,Stated [Primary Care Provider] - 1-2 days Time of Disposition: 21:58
[2021-06-06 21:11] LABS: Platelet Count 69 k/uL (150-450)
== END 2021-06-06 22:45 | disposition home or self-care (01) ==
LOC: EC 19:58
DX: J06.9 Acute upper respiratory infection, unspecified (principal); E11.9 Type 2 diabetes mellitus without complications; E78.5 Hyperlipidemia, unspecified
CPT/HCPCS: 36415; 71046; 80053; 85025; 87635; 99285

== ENCOUNTER 2021-07-23 03:06 | Emergency (ER) | payer OTHER ==
[2021-07-23 03:16] VITALS: BP 133/86; PULSE 83; RESP 20; TEMP 98.3
--- NOTE | 2021-07-23 04:21 | ED ---
Recheck HPI - General Chief Complaint: Upper Respiratory Infection Stated Complaint: Cough,Weakness Time Seen by Provider: 07/23/21 03:36 Source: patient, RN notes reviewed, old records reviewed Mode of arrival: ambulatory Limitations: no limitations - History of Present Illness Initial Comments: This is a 30-year-old male who presents to the ER for coronavirus testing he is a Positive Coronavirus. Patient Again Denies Any Complaints Medical History No Fevers No Chest Pain or Shortness of Breath. Patient Takes No Medications with No Recent Travel History, Only Sick Contact Includes MD Complaint: wound re-check -: days(s) Returns Today for: request for prescription, persistent/worsening pain related to initial visit Symptoms Since Prior Visit: worsening pain, fever Context: called for abnormal lab result Associated Symptoms: fever, chills, shortness of breath, malaise, nausea - Related Data Home Medications Medication Instructions Recorded Confirmed Insulin Aspart (For Pump) [NovoLOG See Protocol SQ-PUMP CONTINUOUS 05/28/17 08/04/17 (For Pump)] Previous Rx's Medication Instructions Recorded Azithromycin [Zithromax Z-pack (6 0 mg PO DIRECTED #6 tab 04/11/21 tabs)] guaiFENesin-DM 600/30MG [Mucinex 1 each PO Q12HR #10 tab.er.12h 04/11/21 Dm] Allergies Allergy/AdvReac Type Severity Reaction Status Date / Time No Known Allergies Allergy Verified 07/23/21 03:16 Review of Systems ROS Statement: Those systems with pertinent positive or pertinent negative responses have been documented in the HPI. ROS Other: All systems not noted in ROS Statement are negative. Past Medical History Past Medical History: Diabetes Mellitus, Hyperlipidemia History of Any Multi-Drug Resistant Organisms: None Reported Additional Past Surgical History / Comment(s): Right eyelid surgery, cataract left eye. Past Anesthesia/Blood Transfusion Reactions: No Reported Reaction Past Psychological History: No Psychological Hx Reported Smoking Status: Never smoker Past Alcohol Use History: Rare Past Drug Use History: None Reported - Past Family History Mother Family Medical History: No Reported History Father Family Medical History: No Reported History Sister(s) Family Medical History: No Reported History General Exam Limitations: no limitations General appearance: alert, in no apparent distress Head exam: Present: atraumatic, normocephalic, normal inspection Eye exam: Present: normal appearance, PERRL, EOMI. Absent: scleral icterus, conjunctival injection, periorbital swelling ENT exam: Present: normal exam, mucous membranes moist Neck exam: Present: normal inspection. Absent: tenderness, meningismus, lymphadenopathy Respiratory exam: Present: normal lung sounds bilaterally. Absent: respiratory distress, wheezes, rales, rhonchi, stridor Cardiovascular Exam: Present: regular rate, normal rhythm, normal heart sounds. Absent: systolic murmur, diastolic murmur, rubs, gallop, clicks GI/Abdominal exam: Present: soft, normal bowel sounds. Absent: distended, tenderness, guarding, rebound, rigid Extremities exam: Present: normal inspection, full ROM, normal capillary refill. Absent: tenderness, pedal edema, joint swelling, calf tenderness Back exam: Present: normal inspection Neurological exam: Present: alert, oriented X3, CN II-XII intact Psychiatric exam: Present: normal affect, normal mood Skin exam: Present: warm, dry, intact, normal color. Absent: rash Course Vital Signs 07/23/21 03:13 Temperature 98.3 F Pulse Rate 83 Respiratory 20 Rate Blood Pressure 133/86 O2 Sat by Pulse 100 Oximetry - Reevaluation(s) Reevaluation #1: 07/23/21 Medical record is reviewed Patient symptoms are improved here in the emergency department Patient is informed results and questions answered Patient is in no acute distress Medical Decision Making - Medical Decision Making 30-year-old male DF for coronavirus testing secondary to what is positive diagnosis. Patient is positive for coronavirus informed of results - Lab Data Lab Results 07/23/21 Range/Units 03:18 Coronavirus (PCR) Detected A (Not Detectd) Disposition Clinical Impression: Coronavirus infection Disposition: HOME SELF-CARE Condition: Good Instructions (If sedation given, give patient instructions): Coronavirus Disease 2019 (COVID-19) Is patient prescribed a controlled substance at d/c from ED?: No Referrals: None,Stated [Primary Care Provider] - 1-2 days
== END 2021-07-23 05:51 | disposition home or self-care (01) ==
LOC: EC 03:06
DX: U07.1 COVID-19 (principal); E11.36 Type 2 diabetes mellitus with diabetic cataract; E78.5 Hyperlipidemia, unspecified; Z79.4 Long term (current) use of insulin
CPT/HCPCS: 87635; 99284

== ENCOUNTER 2021-08-28 19:52 | Emergency (ER) | payer OTHER ==
[2021-08-28 20:46] VITALS: TEMP 99.9
--- NOTE | 2021-08-28 21:59 | XR ---
EXAMINATION TYPE: XR chest 2V DATE OF EXAM: 08/28/2021 COMPARISON: 06/06/2021 HISTORY: Cough TECHNIQUE: 2 views FINDINGS: Heart and mediastinum are normal. Lungs are clear. Diaphragm is normal. Bony thorax appears normal. IMPRESSION: Normal chest. No change.
[2021-08-28] MEDS ORDERED: IPRATROPIUM-ALBUTEROL 3 ML NEB INHALATION STA (22:17)
[2021-08-28] MEDS ORDERED: IBUPROFEN 600 MG TAB PO STA (22:17)
[2021-08-28] MEDS ORDERED: ACETAMINOPHEN TAB 325 MG TAB PO STA (22:17)
[2021-08-28] MEDS ORDERED: SODIUM CHLORIDE 0.9% 1,000 ML IV ONE (22:17)
[2021-08-28 22:47] LABS: Basophils # (A) 0.1 k/uL (0-0.2); Basophils % (A) 1 %; Eosinophils # (A) 0.2 k/uL (0-0.7); Eosinophils % (A) 1 %; HCT 39.5 % (39.0-53.0); HGB 14.3 gm/dL (13.0-17.5); Lymphocytes # (A) 1.3 k/uL (1.0-4.8); Lymphocytes % (A) 11 %; MCH 32.4 pg (25.0-35.0); MCHC 36.1 g/dL (31.0-37.0); MCV 89.7 fL (80.0-100.0); Mean Platelet Volume 8.6; Monocytes # (A) 0.5 k/uL (0-1.0); Monocytes % (A) 5 %; Neutrophils # (A) 9.2 k/uL (1.3-7.7); Neutrophils % (A) 80 %; Platelet Count 225 k/uL (150-450); RBC 4.41 m/uL (4.30-5.90); RDW 12.1 % (11.5-15.5); WBC 11.5 k/uL (3.8-10.6)
--- NOTE | 2021-08-28 22:58 | ED ---
URI HPI <TonyJohn - Last Filed: 08/29/21 01:51> - General Source: patient, family Mode of arrival: ambulatory Limitations: no limitations <Imani Bourne - Last Filed: 09/06/21 23:21> - General Chief Complaint: Upper Respiratory Infection Stated Complaint: Cough Time Seen by Provider: 08/28/21 22:15 - History of Present Illness Initial Comments: Ruel is a 30-year-old male presents the emergency department today via private vehicle for evaluation of cough, fever and not feeling well. Patient COVID-19 last month, he did feel better for approximately 2 weeks but this week again has cough congestion and low-grade fever. (Imani Bourne) - Related Data Home Medications Medication Instructions Recorded Confirmed Insulin Aspart (For Pump) [NovoLOG See Protocol SQ-PUMP CONTINUOUS 05/28/17 08/04/17 (For Pump)] Previous Rx's Medication Instructions Recorded Azithromycin [Zithromax Z-pack (6 0 mg PO DIRECTED #6 tab 04/11/21 tabs)] guaiFENesin-DM 600/30MG [Mucinex 1 each PO Q12HR #10 tab.er.12h 04/11/21 Dm] Allergies Allergy/AdvReac Type Severity Reaction Status Date / Time No Known Allergies Allergy Verified 08/28/21 20:43 Review of Systems ROS Other: All systems not noted in ROS Statement are negative. <TonyJohn - Last Filed: 08/29/21 01:51> ROS Other: All systems not noted in ROS Statement are negative. <Imani Bourne - Last Filed: 09/06/21 23:21> ROS Statement: Those systems with pertinent positive or pertinent negative responses have been documented in the HPI. Past Medical History Past Medical History: Diabetes Mellitus, Hyperlipidemia History of Any Multi-Drug Resistant Organisms: None Reported Additional Past Surgical History / Comment(s): Right eyelid surgery, cataract left eye. Past Anesthesia/Blood Transfusion Reactions: No Reported Reaction Past Psychological History: No Psychological Hx Reported Smoking Status: Never smoker Past Alcohol Use History: Rare Past Drug Use History: None Reported - Past Family History Mother Family Medical History: No Reported History Father Family Medical History: No Reported History Sister(s) Family Medical History: No Reported History <Imani Bourne - Last Filed: 09/06/21 23:21> General Exam Limitations: no limitations <Imani Bourne - Last Filed: 09/06/21 23:21> - General Exam Comments Initial Comments: Physical Exam GENERAL: Patient is well-developed and well-nourished. Patient is nontoxic and well- hydrated and is in no distress. HENT: Normocephalic, Atraumatic. EYES: PERRL, EOMI PULMONARY: Unlabored respirations. No audible rales rhonchi or wheezing was noted. CARDIOVASCULAR: There is a regular rate and rhythm without any murmurs gallops or rubs. ABDOMEN: Soft and nontender with normal bowel sounds. SKIN: Skin is clear with no lesions or rashes and otherwise unremarkable. : Deferred NEUROLOGIC: Patient is alert and oriented x3. Moving all extremities spontaneously MUSCULOSKELETAL: Normal extremities with adequate strength and full range of motion. No lower extremity swelling or edema. No calf tenderness. PSYCHIATRIC: Normal psychiatric evaluation. (Imani Bourne) Course Vital Signs 08/28/21 08/28/21 08/28/21 20:43 22:56 23:08 Temperature 99.9 F H Pulse Rate 111 H 108 H 112 H Respiratory 20 Rate Blood Pressure 138/78 O2 Sat by Pulse 92 L Oximetry 08/28/21 08/29/21 23:45 03:00 Temperature Pulse Rate 84 84 Respiratory 20 24 Rate Blood Pressure 100/63 108/63 O2 Sat by Pulse 94 L 94 L Oximetry Medical Decision Making - Lab Data Result diagrams: 08/28/21 22:24 08/28/21 22:24 <John Jimenez - Last Filed: 08/29/21 01:51> - Lab Data Result diagrams: 08/28/21 22:24 08/28/21 22:24 <Imani Bourne - Last Filed: 09/06/21 23:21> - Medical Decision Making Patient was seen and evaluated, history is obtained from patient and review of medical record 30-year-old male history type 1 diabetes presenting today with viral URI type symptoms after having COVID-19 last month, labs and CT imaging were ordered Labs resulted with evidence of hyperglycemia. Anion gap was not elevated. Patient is mildly hyperkalemic with pseudohyponatremia. IV fluids and IV insulin were ordered. CT pending, patient care is signed out to Dr. Mccormick who will follow-up on glucose and CT results (Imani Bourne) - Lab Data Lab Results 08/28/21 08/28/21 08/28/21 Range/Units 20:48 22:24 22:24 WBC 11.5 H (3.8-10.6) k/uL RBC 4.41 (4.30-5.90) m/uL Hgb 14.3 (13.0-17.5) gm/dL Hct 39.5 (39.0-53.0) % MCV 89.7 (80.0-100.0) fL MCH 32.4 (25.0-35.0) pg MCHC 36.1 (31.0-37.0) g/dL RDW 12.1 (11.5-15.5) % Plt Count 225 (150-450) k/uL MPV 8.6 Neutrophils % 80 % Lymphocytes % 11 % Monocytes % 5 % Eosinophils % 1 % Basophils % 1 % Neutrophils # 9.2 H (1.3-7.7) k/uL Lymphocytes # 1.3 (1.0-4.8) k/uL Monocytes # 0.5 (0-1.0) k/uL Eosinophils # 0.2 (0-0.7) k/uL Basophils # 0.1 (0-0.2) k/uL Sodium 127 L (137-145) mmol/L Potassium 6.0 H (3.5-5.1) mmol/L Chloride 92 L (98-107) mmol/L Carbon Dioxide 20 L (22-30) mmol/L Anion Gap 15 mmol/L BUN 40 H (9-20) mg/dL Creatinine 1.41 H (0.66-1.25) mg/dL Est GFR (CKD-EPI)AfAm 77 (>60 ml/min/1.73 sqM) Est GFR (CKD-EPI)NonAf 67 (>60 ml/min/1.73 sqM) Glucose 589 H* (74-99) mg/dL POC Glucose (mg/dL) (75-99) mg/dL POC Glu [employer] ID Calcium 9.3 (8.4-10.2) mg/dL Total Bilirubin 1.1 (0.2-1.3) mg/dL AST 25 (17-59) U/L ALT 21 (4-49) U/L Alkaline Phosphatase 117 (38-126) U/L Total Protein 7.1 (6.3-8.2) g/dL Albumin 4.3 (3.5-5.0) g/dL Coronavirus (PCR) Not Detected (Not Detectd) 08/29/21 08/29/21 08/29/21 Range/Units 00:25 01:14 02:26 WBC (3.8-10.6) k/uL RBC (4.30-5.90) m/uL Hgb (13.0-17.5) gm/dL Hct (39.0-53.0) % MCV (80.0-100.0) fL MCH (25.0-35.0) pg MCHC (31.0-37.0) g/dL RDW (11.5-15.5) % Plt Count (150-450) k/uL MPV Neutrophils % % Lymphocytes % % Monocytes % % Eosinophils % % Basophils % % Neutrophils # (1.3-7.7) k/uL Lymphocytes # (1.0-4.8) k/uL Monocytes # (0-1.0) k/uL Eosinophils # (0-0.7) k/uL Basophils # (0-0.2) k/uL Sodium (137-145) mmol/L Potassium (3.5-5.1) mmol/L Chloride (98-107) mmol/L Carbon Dioxide (22-30) mmol/L Anion Gap mmol/L BUN (9-20) mg/dL Creatinine (0.66-1.25) mg/dL Est GFR (CKD-EPI)AfAm (>60 ml/min/1.73 sqM) Est GFR (CKD-EPI)NonAf (>60 ml/min/1.73 sqM) Glucose (74-99) mg/dL POC Glucose (mg/dL) >600 H 557 H 457 H (75-99) mg/dL POC Glu [employer] Sergeant OLIVA Branch, Zari Branch, Zari Burch, Moncho Calcium (8.4-10.2) mg/dL Total Bilirubin (0.2-1.3) mg/dL AST (17-59) U/L ALT (4-49) U/L Alkaline Phosphatase (38-126) U/L Total Protein (6.3-8.2) g/dL Albumin (3.5-5.0) g/dL Coronavirus (PCR) (Not Detectd) 08/29/21 Range/Units 03:21 WBC (3.8-10.6) k/uL RBC (4.30-5.90) m/uL Hgb (13.0-17.5) gm/dL Hct (39.0-53.0) % MCV (80.0-100.0) fL MCH (25.0-35.0) pg MCHC (31.0-37.0) g/dL RDW (11.5-15.5) % Plt Count (150-450) k/uL MPV Neutrophils % % Lymphocytes % % Monocytes % % Eosinophils % % Basophils % % Neutrophils # (1.3-7.7) k/uL Lymphocytes # (1.0-4.8) k/uL Monocytes # (0-1.0) k/uL Eosinophils # (0-0.7) k/uL Basophils # (0-0.2) k/uL Sodium (137-145) mmol/L Potassium (3.5-5.1) mmol/L Chloride (98-107) mmol/L Carbon Dioxide (22-30) mmol/L Anion Gap mmol/L BUN (9-20) mg/dL Creatinine (0.66-1.25) mg/dL Est GFR (CKD-EPI)AfAm (>60 ml/min/1.73 sqM) Est GFR (CKD-EPI)NonAf (>60 ml/min/1.73 sqM) Glucose (74-99) mg/dL POC Glucose (mg/dL) 430 H (75-99) mg/dL POC Glu [employer] ID Burch, Moncho Calcium (8.4-10.2) mg/dL Total Bilirubin (0.2-1.3) mg/dL AST (17-59) U/L ALT (4-49) U/L Alkaline Phosphatase (38-126) U/L Total Protein (6.3-8.2) g/dL Albumin (3.5-5.0) g/dL Coronavirus (PCR) (Not Detectd) Disposition Is patient prescribed a controlled substance at d/c from ED?: No <John Jimenez - Last Filed: 08/29/21 01:51> <Imani Bourne - Last Filed: 09/06/21 23:21> Clinical Impression: Diabetes, Upper respiratory tract infection Disposition: HOME SELF-CARE Condition: Fair Instructions (If sedation given, give patient instructions): Upper Respiratory Infection (ED), Diabetic Hyperglycemia (ED) Referrals: None,Stated [Primary Care Provider] - 1-2 days
[2021-08-28 23:15] LABS: Albumin 4.3 g/dL (3.5-5.0); Calcium 9.3 mg/dL (8.4-10.2); Total Bilirubin 1.1 mg/dL (0.2-1.3); Total Protein 7.1 g/dL (6.3-8.2)
[2021-08-29] MEDS ORDERED: INSULIN REGULAR 100 UNIT/ML VIAL (IV) IV ONE (00:08)
--- NOTE | 2021-08-29 00:25 | CT ---
EXAMINATION TYPE: CT chest angio for PE DATE OF EXAM: 08/29/2021 COMPARISON: None HISTORY: pe CT DLP: 180.3 mGycm Automated exposure control for dose reduction was used. CONTRAST: Performed with IV Contrast, patient injected with 55 mL of Isovue 370. There are 3-D post processed images. The lungs are clear of infiltrate. There is no evidence of a pulmonary mass. There is no pleural effu yoko. There is no pericardial effusion. Heart size is normal. There is no mediastinal adenopathy. There are no hilar masses. There is normal contrast opacification of the pulmonary arteries. There are no filling defects. Thoracic vertebra have normal alignment. Posterior elements are intact. There is no compression fract ure. Sternum is intact. There is some mild biconcave deformity of the thoracic vertebra. IMPRESSION: No evidence of pulmonary embolism. Biconcave deformity of the thoracic vertebra consistent with osteo malacia. This appears similar to the old CT scan of 05/28/2017.
[2021-08-29 00:26] LABS: Glucose,Whole Blood >600 mg/dL (75-99)
[2021-08-29 01:16] LABS: Glucose,Whole Blood 557 mg/dL (75-99)
[2021-08-29 02:27] LABS: Glucose,Whole Blood 457 mg/dL (75-99)
[2021-08-29] MEDS ORDERED: SODIUM CHLORIDE 0.9% 1,000 ML IV ONE (02:27)
[2021-08-29 03:22] LABS: Glucose,Whole Blood 430 mg/dL (75-99)
[2021-08-29 03:37] VITALS: PULSE 84
[2021-08-29 03:39] VITALS: BP 108/63; RESP 24
== END 2021-08-29 05:07 | disposition home or self-care (01) ==
LOC: EC 19:52
DX: J06.9 Acute upper respiratory infection, unspecified (principal); E11.9 Type 2 diabetes mellitus without complications; E78.5 Hyperlipidemia, unspecified; Z79.4 Long term (current) use of insulin; Z20.822 Contact with and (suspected) exposure to COVID-19
CPT/HCPCS: 99284 ×2; 96360 ×2; 96361 ×2; 36415 ×2; 94640; 80053; 85025; 87635; 71046; 71275; Q9967

== ENCOUNTER 2022-03-29 12:20 | Emergency (ER) | payer OTHER ==
[2022-03-29 12:54] VITALS: RESP 18; TEMP 98
[2022-03-29] MEDS ORDERED: METOCLOPRAMIDE 5 MG/ML 2 ML VIAL IVP STA (13:26)
[2022-03-29] MEDS ORDERED: SODIUM CHLORIDE 0.9% 1,000 ML IV STA (13:26)
[2022-03-29] MEDS ORDERED: diphenhydrAMINE 50 MG/ML 1 ML VIAL IVP STA (13:26)
[2022-03-29 13:42] LABS: Basophils % (A) 0 %; Eosinophils # (A) 0.1 k/uL (0-0.7); Eosinophils % (A) 2 %; HCT 40.2 % (39.0-53.0); HGB 13.6 gm/dL (13.0-17.5); Lymphocytes % (A) 30 %; MCHC 33.9 g/dL (31.0-37.0); MCV 91.6 fL (80.0-100.0); Mean Platelet Volume 7.7; Monocytes # (A) 0.5 k/uL (0-1.0); Monocytes % (A) 7 %; Neutrophils % (A) 59 %; Platelet Count 281 k/uL (150-450); RBC 4.39 m/uL (4.30-5.90); RDW 12.8 % (11.5-15.5); WBC 6.8 k/uL (3.8-10.6)
--- NOTE | 2022-03-29 14:00 | ED ---
General Adult HPI - General Chief complaint: Headache Stated complaint: Headache Time Seen by Provider: 03/29/22 12:56 Source: patient, RN notes reviewed Mode of arrival: ambulatory Limitations: no limitations - History of Present Illness Initial comments: 31-year-old male with a past medical history of diabetes mellitus, hyperlipidemia presents to the emergency room for headache. Patient has had a headache since yesterday after work. Patient states he was working outside all day and it was very hot. 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 Patient states yesterday after work he started to get a headache. States it kind of came on gradually throughout the afternoon. At the worst patient rates the pain at a 7 out of 10. Patient states it is across his forehead. Denies thunderclap characteristics. Pain was not the worst at onset. No neck stiffness. No visual changes. He did have some associated nausea yesterday that resolved. No fevers. Patient has no other complaints at this time including shortness of breath, chest pain, abdominal pain, nausea or vomiting, or visual changes. - Related Data Home Medications Medication Instructions Recorded Confirmed Insulin Aspart (For Pump) [NovoLOG See Protocol SQ-PUMP CONTINUOUS 05/28/17 03/29/22 (For Pump)] Allergies Allergy/AdvReac Type Severity Reaction Status Date / Time No Known Allergies Allergy Verified 03/29/22 14:09 Review of Systems ROS Statement: Those systems with pertinent positive or pertinent negative responses have been documented in the HPI. ROS Other: All systems not noted in ROS Statement are negative. Past Medical History Past Medical History: Diabetes Mellitus, Hyperlipidemia History of Any Multi-Drug Resistant Organisms: None Reported Additional Past Surgical History / Comment(s): Right eyelid surgery, cataract left eye. Past Anesthesia/Blood Transfusion Reactions: No Reported Reaction Past Psychological History: No Psychological Hx Reported Smoking Status: Never smoker Past Alcohol Use History: Rare Past Drug Use History: None Reported - Past Family History Mother Family Medical History: No Reported History Father Family Medical History: No Reported History Sister(s) Family Medical History: No Reported History General Exam Limitations: no limitations General appearance: alert, in no apparent distress Head exam: Present: atraumatic Eye exam: Present: normal appearance, PERRL, EOMI. Absent: scleral icterus, conjunctival injection ENT exam: Present: normal exam, mucous membranes moist Neck exam: Present: normal inspection, full ROM. Absent: tenderness Respiratory exam: Present: normal lung sounds bilaterally. Absent: respiratory distress, wheezes Cardiovascular Exam: Present: regular rate, normal rhythm, normal heart sounds GI/Abdominal exam: Present: soft, normal bowel sounds. Absent: distended, tenderness Neurological exam: Present: alert, oriented X3, CN II-XII intact, normal gait, other (GCS 15) Course Vital Signs 03/29/22 12:50 Temperature 98.0 F Pulse Rate 97 Respiratory 18 Rate Blood Pressure 125/79 O2 Sat by Pulse 97 Oximetry Medical Decision Making - Medical Decision Making Vitals are stable. Patient is well appearing. No focal neurologic deficits. CT brain shows no acute intracranial abnormalities seen. Patient was given Reglan Benadryl Toradol and fluids. On reevaluation patient is resting comfortably. His pain is at a 0 now. Patient does have a ride home. Patient is stable for discharge home and will return for any worsening symptoms. - Lab Data Result diagrams: 03/29/22 13:29 03/29/22 13:29 Lab Results 03/29/22 03/29/22 Range/Units 13:29 13:29 WBC 6.8 (3.8-10.6) k/uL RBC 4.39 (4.30-5.90) m/uL Hgb 13.6 (13.0-17.5) gm/dL Hct 40.2 (39.0-53.0) % MCV 91.6 (80.0-100.0) fL MCH 31.0 (25.0-35.0) pg MCHC 33.9 (31.0-37.0) g/dL RDW 12.8 (11.5-15.5) % Plt Count 281 (150-450) k/uL MPV 7.7 Neutrophils % 59 % Lymphocytes % 30 % Monocytes % 7 % Eosinophils % 2 % Basophils % 0 % Neutrophils # 4.0 (1.3-7.7) k/uL Lymphocytes # 2.0 (1.0-4.8) k/uL Monocytes # 0.5 (0-1.0) k/uL Eosinophils # 0.1 (0-0.7) k/uL Basophils # 0.0 (0-0.2) k/uL Sodium 139 (137-145) mmol/L Potassium 3.5 (3.5-5.1) mmol/L Chloride 107 (98-107) mmol/L Carbon Dioxide 27 (22-30) mmol/L Anion Gap 5 mmol/L BUN 17 (9-20) mg/dL Creatinine 1.15 (0.66-1.25) mg/dL Est GFR (CKD-EPI)AfAm >90 (>60 ml/min/1.73 sqM) Est GFR (CKD-EPI)NonAf 85 (>60 ml/min/1.73 sqM) Glucose 89 (74-99) mg/dL Calcium 8.8 (8.4-10.2) mg/dL Disposition Clinical Impression: Headache Disposition: HOME SELF-CARE Condition: Good Instructions (If sedation given, give patient instructions): Acute Headache (ED) Additional Instructions: Drink plenty of fluids. Follow-up with your doctor in one to 2 days. Return to the emergency room for any worsening symptoms. Is patient prescribed a controlled substance at d/c from ED?: No Referrals: Jaclyn Bolden NPC [Primary Care Provider] - 1-2 days Time of Disposition: 15:34
[2022-03-29 14:01] LABS: African American GFR (CKD) >90 (>60 ml/min/1.73 sqM); Anion Gap 5 mmol/L; Blood Urea Nitrogen 17 mg/dL (9-20); Calcium 8.8 mg/dL (8.4-10.2); Carbon Dioxide 27 mmol/L (22-30); Chloride 107 mmol/L (98-107); Glucose 89 mg/dL (74-99); Non-African American GFR(CKD) 85 (>60 ml/min/1.73 sqM); Potassium 3.5 mmol/L (3.5-5.1); Sodium 139 mmol/L (137-145)
--- NOTE | 2022-03-29 14:01 | CT ---
EXAMINATION TYPE: CT brain wo con DATE OF EXAM: 03/29/2022 COMPARISON: None HISTORY: 31-year-old male Dizziness and headache. TECHNIQUE: Examination was done in axial plane without intravenous contrast. Coronal and sagittal r econstructions performed. CT DLP: 1157.8 mGycm Automated exposure control for dose reduction was used. FINDINGS: There is no evidence of acute intracranial hemorrhage, acute ischemic changes, mass, mass-effect, or extra-axial fluid collection. There is no effacement of cerebral sulci or basal subarachnoid cister ns. There is no hydrocephalus. There is no midline shift. Becerra-white matter distinction is preserv ed. Trace mucosal thickening ethmoid air cells. Mastoid air cells well pneumatized. Orbits and globes are intact. IMPRESSION: No acute intracranial abnormality seen.
[2022-03-29] MEDS ORDERED: KETOROLAC 15 MG/ML 1 ML VIAL IVP STA (14:52)
[2022-03-29 15:47] VITALS: BP 124/68; PULSE 82
== END 2022-03-29 15:45 | disposition home or self-care (01) ==
LOC: EC 12:20
DX: R51.9 Headache, unspecified (principal); E11.9 Type 2 diabetes mellitus without complications; I10 Essential (primary) hypertension
CPT/HCPCS: 36415; 80048; 85025; 70450; 99284; 96374; 96375; 96361; J1200; J2765

== ENCOUNTER 2022-03-30 21:21 | Emergency (ER) | payer OTHER ==
[2022-03-30 22:34] LABS: Appearance,Urine Clear (Clear); Bilirubin,Urine Negative (Negative); Blood,Urine Negative (Negative); Color,Urine Light Yellow; Glucose,Urine (UA) 4+ (Negative); Ketones,Urine Negative (Negative); Leukocyte Esterase,Urine Negative (Negative); Nitrite,Urine Negative (Negative); PH, Urine 5.5 (5.0-8.0); Protein,Urine Trace (Negative); Specific Gravity,Urine 1.016 (1.001-1.035); Urobilinogen,Urine <2.0 mg/dL (<2.0)
[2022-03-30 22:44] LABS: Amphetamine Screen,Urine Not Detected (NotDetected); Barbiturate Screen,Urine Not Detected (NotDetected); Benzodiazepines Screen,Urine Not Detected (NotDetected); Cocaine Screen,Urine Not Detected (NotDetected); Methadone Screen, Urine Not Detected (NotDetected); Opiate Screen,Urine Not Detected (NotDetected); Oxycodone Screen, Urine Not Detected (NotDetected); Phencyclidine Screen,Urine Not Detected (NotDetected); Tricyclic Antidepressant,Urine Not Detected (NotDetected); Urn Cannabinoid Scrn Not Detected (NotDetected)
[2022-03-31 00:26] VITALS: BP 155/70; PULSE 90; RESP 20; TEMP 97.6
--- NOTE | 2022-05-03 12:37 | ED ---
Psych HPI - General Chief Complaint: Psychiatric Symptoms Stated Complaint: Petition Time Seen by Provider: 03/30/22 22:40 Source: patient, police Mode of arrival: ambulatory Limitations: no limitations - History of Present Illness Initial Comments: This patient is a 31-year-old man who presents to have psychiatric evaluation. The patient had been drinking earlier. He had made some suicidal statements to his who then reported this to law enforcement. The patient does admit to making statements but states that he had been drinking and is nontender harm himself. MD Complaint: suicidal ideation -: hour(s) Associated Psychiatric Symptoms: none Quality: resolved prior to arrival Improves With: none Worsens With: alcohol Context: recent alcohol abuse Associated Symptoms: denies other symptoms - Related Data Home Medications Medication Instructions Recorded Confirmed Insulin Aspart (For Pump) [NovoLOG See Protocol SQ-PUMP CONTINUOUS 05/28/17 03/29/22 (For Pump)] Allergies Allergy/AdvReac Type Severity Reaction Status Date / Time No Known Allergies Allergy Verified 03/29/22 14:09 Review of Systems ROS Statement: Those systems with pertinent positive or pertinent negative responses have been documented in the HPI. ROS Other: All systems not noted in ROS Statement are negative. Respiratory: Denies: cough, dyspnea Cardiovascular: Denies: chest pain, syncope Gastrointestinal: Denies: abdominal pain, vomiting Musculoskeletal: Denies: back pain Neurological: Denies: headache, weakness, numbness Psychiatric: Denies: depression, auditory hallucinations, visual hallucinations, homicidal thoughts, suicidal thoughts Past Medical History Past Medical History: Diabetes Mellitus, Hyperlipidemia History of Any Multi-Drug Resistant Organisms: None Reported Additional Past Surgical History / Comment(s): Right eyelid surgery, cataract left eye. Past Anesthesia/Blood Transfusion Reactions: No Reported Reaction Past Psychological History: No Psychological Hx Reported Smoking Status: Never smoker Past Alcohol Use History: Rare Past Drug Use History: None Reported - Past Family History Mother Family Medical History: No Reported History Father Family Medical History: No Reported History Sister(s) Family Medical History: No Reported History General Exam General appearance: alert, in no apparent distress Head exam: Present: atraumatic, normocephalic Eye exam: Present: normal appearance. Absent: scleral icterus, conjunctival injection Neck exam: Present: normal inspection Respiratory exam: Present: normal lung sounds bilaterally. Absent: respiratory distress, wheezes, rales, rhonchi, stridor Cardiovascular Exam: Present: regular rate, normal rhythm, normal heart sounds. Absent: systolic murmur, diastolic murmur, rubs, gallop GI/Abdominal exam: Present: soft. Absent: distended, tenderness, guarding, rebound, rigid, mass Extremities exam: Present: normal inspection, normal capillary refill. Absent: pedal edema, calf tenderness Neurological exam: Present: alert, oriented X3. Absent: motor sensory deficit Psychiatric exam: Present: normal affect, normal mood. Absent: agitated, anxious, manic, homicidal ideation, suicidal ideation Skin exam: Present: warm, dry, intact, normal color. Absent: rash Course Vital Signs 03/30/22 03/30/22 03/31/22 21:48 22:30 00:25 Temperature 98.2 F 98.0 F 97.6 F Pulse Rate 100 92 90 Respiratory 16 16 20 Rate Blood Pressure 168/88 157/78 155/70 O2 Sat by Pulse 99 98 98 Oximetry Medical Decision Making - Medical Decision Making Patient is a 31-year-old man brought to have psychiatric evaluation after he made suicidal statements. The patient did recant this. He had been drinking alcohol. Patient is evaluated by EPS and they have cleared the patient for discharge home after discussion with the psychiatrist. - Lab Data Lab Results 03/30/22 Range/Units 22:09 Urine Color Light Yellow Urine Appearance Clear (Clear) Urine pH 5.5 (5.0-8.0) Ur Specific [place] 1.016 (1.001-1.035) Urine Protein Trace H (Negative) Urine Glucose (UA) 4+ H (Negative) Urine Ketones Negative (Negative) Urine Blood Negative (Negative) Urine Nitrite Negative (Negative) Urine Bilirubin Negative (Negative) Urine Urobilinogen <2.0 (<2.0) mg/dL Ur Leukocyte Esterase Negative (Negative) Urine Opiates Screen Not Detected (NotDetected) Ur Oxycodone Screen Not Detected (NotDetected) Urine Methadone Screen Not Detected (NotDetected) Ur Propoxyphene Screen Not Detected (NotDetected) Ur Barbiturates Screen Not Detected (NotDetected) U Tricyclic Antidepress Not Detected (NotDetected) Ur Phencyclidine Scrn Not Detected (NotDetected) Ur Amphetamines Screen Not Detected (NotDetected) U Methamphetamines Scrn Not Detected (NotDetected) U Benzodiazepines Scrn Not Detected (NotDetected) Urine Cocaine Screen Not Detected (NotDetected) U Marijuana (THC) Screen Not Detected (NotDetected) Disposition Clinical Impression: Adjustment reaction of adult life Disposition: HOME SELF-CARE Condition: Good Is patient prescribed a controlled substance at d/c from ED?: No Referrals: Yanet Mensah MD [Primary Care Provider] - 1-2 days
== END 2022-03-31 00:25 | disposition home or self-care (01) ==
LOC: SUPCPDRO 21:21 → EC 21:21
DX: F43.20 Adjustment disorder, unspecified (principal); E11.9 Type 2 diabetes mellitus without complications; E78.5 Hyperlipidemia, unspecified
CPT/HCPCS: 80306; 81003; 82075; 99285

== ENCOUNTER 2022-04-13 23:23 | Emergency (ER) | payer OTHER ==
[2022-04-13 23:47] VITALS: BP 156/95; PULSE 94; RESP 18; TEMP 98.2
--- NOTE | 2022-04-14 00:06 | ED ---
Lower Extremity Injury HPI - General Chief Complaint: Extremity Injury, Lower Stated Complaint: Rt Foot Injury Time Seen by Provider: 04/13/22 23:52 Source: patient, RN notes reviewed, old records reviewed Mode of arrival: ambulatory Limitations: no limitations - History of Present Illness Initial Comments: This is a 31-year-old male to the emergency department for evaluation patient presents today for evaluation of foot pain injury maybe occurred during walking or jumping off a porch 2 days ago. He is concerned secondary to his diabetes possible underlying causes of pain or fracture. He is able ambulate but he does have significant pain no other complaints MD Complaint: foot injury -: days(s) Injury: Foot: Right Type of Injury: blunt Place: home Severity: mild Severity scale (1-10): 3 Worsens With: weight bearing Context: direct blow Associated Symptoms: able to partially bear weight Treatments Prior to Arrival: other (none) - Related Data Home Medications Medication Instructions Recorded Confirmed Insulin Aspart (For Pump) [NovoLOG See Protocol SQ-PUMP CONTINUOUS 05/28/17 03/29/22 (For Pump)] Allergies Allergy/AdvReac Type Severity Reaction Status Date / Time No Known Allergies Allergy Verified 03/29/22 14:09 Review of Systems ROS Statement: Those systems with pertinent positive or pertinent negative responses have been documented in the HPI. ROS Other: All systems not noted in ROS Statement are negative. Past Medical History Past Medical History: Diabetes Mellitus, Hyperlipidemia History of Any Multi-Drug Resistant Organisms: None Reported Additional Past Surgical History / Comment(s): Right eyelid surgery, cataract left eye. Past Anesthesia/Blood Transfusion Reactions: No Reported Reaction Past Psychological History: No Psychological Hx Reported Smoking Status: Never smoker Past Alcohol Use History: Rare Past Drug Use History: None Reported - Past Family History Mother Family Medical History: No Reported History Father Family Medical History: No Reported History Sister(s) Family Medical History: No Reported History General Exam Limitations: no limitations General appearance: alert, in no apparent distress Head exam: Present: atraumatic, normocephalic, normal inspection Eye exam: Present: normal appearance, PERRL, EOMI. Absent: scleral icterus, conjunctival injection, periorbital swelling ENT exam: Present: normal exam, mucous membranes moist Neck exam: Present: normal inspection. Absent: tenderness, meningismus, lymphadenopathy Respiratory exam: Present: normal lung sounds bilaterally. Absent: respiratory distress, wheezes, rales, rhonchi, stridor Cardiovascular Exam: Present: regular rate, normal rhythm, normal heart sounds. Absent: systolic murmur, diastolic murmur, rubs, gallop, clicks GI/Abdominal exam: Present: soft, normal bowel sounds. Absent: distended, tenderness, guarding, rebound, rigid Extremities exam: Present: normal inspection, full ROM, normal capillary refill. Absent: tenderness, pedal edema, joint swelling, calf tenderness Back exam: Present: normal inspection Neurological exam: Present: alert, oriented X3, CN II-XII intact Psychiatric exam: Present: normal affect, normal mood Skin exam: Present: warm, dry, intact, normal color. Absent: rash Course Vital Signs 04/13/22 23:40 Temperature 98.2 F Pulse Rate 94 Respiratory 18 Rate Blood Pressure 156/95 O2 Sat by Pulse 98 Oximetry - Reevaluation(s) Reevaluation #1: 04/14/22 Medical record is reviewed Reevaluation #2: 04/14/22 patient's pain is improved he is able to amply without difficulty Reevaluation #3: 04/14/22 Patient informed of results and questions have been answered Medical Decision Making - Medical Decision Making 31 male to the emergency department for evaluation patient presents today for evaluation regards to for pain. Patient on [place] has a for pain concern is he does have diabetes for possible fracture. X-rays negative patient can be discharged home - Radiology Data Radiology results: report reviewed (X-ray foot is negative for acute triadic injury), image reviewed Disposition Clinical Impression: Right foot pain Disposition: HOME SELF-CARE Condition: Good Instructions (If sedation given, give patient instructions): Foot Contusion (ED), Foot Sprain (ED) Is patient prescribed a controlled substance at d/c from ED?: No Referrals: Yanet Mensah MD [Primary Care Provider] - 1-2 days Time of Disposition: 00:45
--- NOTE | 2022-04-14 00:10 | XR ---
EXAMINATION TYPE: XR foot complete RT DATE OF EXAM: 04/13/2022 COMPARISON: NONE HISTORY: Foot pain TECHNIQUE: 3 views FINDINGS: Metatarsals are intact. I see no fracture nor dislocation. Joint spaces are normal. The toe s appear intact. IMPRESSION: Negative right foot exam. No fracture seen.
[2022-04-14] MEDS ORDERED: IBUPROFEN 600 MG STARTER PACK 4 TAB BTL PO STA (00:17)
[2022-04-14] MEDS ORDERED: ACET/COD 300 MG/30 MG STARTER PACK 6 TAB BTL PO STA (00:17)
== END 2022-04-14 00:54 | disposition home or self-care (01) ==
LOC: EC 23:23
DX: M79.671 Pain in right foot (principal); E11.9 Type 2 diabetes mellitus without complications; E78.5 Hyperlipidemia, unspecified
CPT/HCPCS: 99283

== ENCOUNTER 2022-09-27 13:23 | Emergency (ER) | payer OTHER ==
[2022-09-27 13:31] VITALS: TEMP 98.6
[2022-09-27 14:07] LABS: Basophils % (A) 1 %; Eosinophils # (A) 0.1 k/uL (0-0.7); Eosinophils % (A) 3 %; HCT 38.3 % (39.0-53.0); HGB 13.8 gm/dL (13.0-17.5); Lymphocytes # (A) 2.1 k/uL (1.0-4.8); Lymphocytes % (A) 48 %; MCH 31.5 pg (25.0-35.0); MCV 87.6 fL (80.0-100.0); Mean Platelet Volume 8.1; Monocytes # (A) 0.3 k/uL (0-1.0); Monocytes % (A) 6 %; Neutrophils # (A) 1.8 k/uL (1.3-7.7); Neutrophils % (A) 40 %; Platelet Count 274 k/uL (150-450); RBC 4.38 m/uL (4.30-5.90); RDW 11.9 % (11.5-15.5); WBC 4.4 k/uL (3.8-10.6)
[2022-09-27 14:12] LABS: Albumin 4.6 g/dL (3.5-5.0); Calcium 9.3 mg/dL (8.4-10.2); Potassium 3.9 mmol/L (3.5-5.1); Total Bilirubin 0.5 mg/dL (0.2-1.3); Total Protein 7.2 g/dL (6.3-8.2)
[2022-09-27] MEDS ORDERED: KETOROLAC 15 MG/ML 1 ML VIAL IVP STA (15:16)
[2022-09-27] MEDS ORDERED: SODIUM CHLORIDE 0.9% 1,000 ML IV STA (15:16)
--- NOTE | 2022-09-27 15:57 | XR ---
EXAMINATION TYPE: XR KUB DATE OF EXAM: 09/27/2022 COMPARISON: NONE HISTORY: Pain TECHNIQUE: 2 views upright FINDINGS: There is no sign of intestinal obstruction or pneumoperitoneum. Fecal pattern is normal. Monica ng bases are clear. No pathologic calcifications. IMPRESSION: Nonacute abdomen.
--- NOTE | 2022-09-27 16:06 | XR ---
EXAMINATION TYPE: XR chest 2V DATE OF EXAM: 09/27/2022 COMPARISON: 08/28/2021 HISTORY: Cough TECHNIQUE: 2 views FINDINGS: Heart and mediastinum are normal. Lungs are clear. Diaphragm is normal. Bony thorax is norm al. IMPRESSION: Normal chest. No change.
[2022-09-27 16:25] LABS: Appearance,Urine Clear (Clear); Bilirubin,Urine Negative (Negative); Blood,Urine Negative (Negative); Color,Urine Yellow; Glucose,Urine (UA) Trace (Negative); Hyaline Casts,Urine 1 /lpf (0-2); Ketones,Urine Negative (Negative); Leukocyte Esterase,Urine Negative (Negative); Mucus,Urine Rare /hpf; Nitrite,Urine Negative (Negative); PH, Urine 6.5 (5.0-8.0); Protein,Urine 2+ (Negative); RBC,Urine 2 /hpf (0-5); Specific Gravity,Urine 1.019 (1.001-1.035); Urobilinogen,Urine <2.0 mg/dL (<2.0); WBC,Urine 2 /hpf (0-5)
--- NOTE | 2022-09-27 16:33 | US ---
EXAMINATION TYPE: US renals and bladder DATE OF EXAM: 09/27/2022 COMPARISON: NONE CLINICAL HISTORY: left flank pain. eval for stone/hydro. llq pain EXAM MEASUREMENTS: Right Kidney: 8.7 x 4.3 x 3.6 Left Kidney: 9.4 x 5.1 x 3.8 Right Kidney: No hydronephrosis or masses seen Left Kidney: No hydronephrosis or masses seen Bladder: anechoic Bilateral Jets seen: No IMPRESSION: No evidence of renal mass or obstruction. No evidence of a bladder mass.
--- NOTE | 2022-09-27 17:12 | ED ---
General Adult HPI - General Chief complaint: Abdominal Pain Stated complaint: Abd pain Time Seen by Provider: 09/27/22 14:58 Source: patient, RN notes reviewed, old records reviewed Mode of arrival: ambulatory Limitations: no limitations - History of Present Illness Initial comments: Patient is a 31-year-old male with past medical history remarkable for type I diabetes who presents emergency Department complaining of intermittent left- sided abdominal pain. Has been present for the last 1-2 days. 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 States the pain comes and goes. No known palliative or provocative factors except for some movements. Denies any dysuria or hematuria. Denies any history of kidney stones. Denies chest pain, shortness of breath. Does endorse a dry cough. Is uncertain if this is related to the pain. Denies any dysuria or hematuria. Denies any diarrhea, nausea, vomiting. No fevers. His no other acute complaint at this time. Does have an insulin pump. Sugars have been within normal limits. Presents for further evaluation at this time. - Related Data Home Medications Medication Instructions Recorded Confirmed Insulin Aspart (For Pump) [NovoLOG See Protocol SQ-PUMP CONTINUOUS 05/28/17 03/29/22 (For Pump)] Allergies Allergy/AdvReac Type Severity Reaction Status Date / Time No Known Allergies Allergy Verified 09/27/22 13:31 Review of Systems ROS Statement: Those systems with pertinent positive or pertinent negative responses have been documented in the HPI. Review of Systems: CONST: Denies fever EYES: Denies blurry vision ENT: Denies nasal congestion C/V: Denies Chest pain RESP: Denies shortness of breath GI: Endorses abdominal pain : Denies dysuria SKIN: Denies rash. MSK: Denies joint pain. NEURO: Denies headache ROS Other: All systems not noted in ROS Statement are negative. Past Medical History Past Medical History: Diabetes Mellitus, Hyperlipidemia History of Any Multi-Drug Resistant Organisms: None Reported Additional Past Surgical History / Comment(s): Right eyelid surgery, cataract left eye. Past Anesthesia/Blood Transfusion Reactions: No Reported Reaction Past Psychological History: No Psychological Hx Reported Smoking Status: Never smoker Past Alcohol Use History: Rare Past Drug Use History: None Reported - Past Family History Mother Family Medical History: No Reported History Father Family Medical History: No Reported History Sister(s) Family Medical History: No Reported History General Exam - General Exam Comments Initial Comments: General: Appears in no acute distress. HEAD: Normal with no signs of head trauma. EYES: PERRLA, EOMI, conjunctiva normal, no discharge. ENT: Hearing grossly intact, normal oropharynx. RESPIRATORY: Clear breath sounds bilaterally. No wheezes, rales, or rhonchi. C/V: Regular rate and rhythm. S1 and S2 auscultated, no edema, peripheral pulses 2+ and intact throughout ABD: Abdomen is soft, nondistended. Minimal tenderness to palpation if any to the left flank. No guarding. No peritoneal signs. No rebound tenderness. No CVA tenderness to percussion. EXT: Normal range of motion, no obvious deformity SKIN: No rashes or lesions observed on exposed skin. NEURO: Alert and oriented 4. Limitations: no limitations Course Vital Signs 09/27/22 09/27/22 13:30 17:29 Temperature 98.6 F Pulse Rate 99 93 Respiratory 22 18 Rate Blood Pressure 116/77 115/73 O2 Sat by Pulse 99 97 Oximetry Medical Decision Making - Medical Decision Making Based on the patient's presentation and physical exam, I'm concerned for possible intra-abdominal process for the patient. This includes kidney stones. We will obtain chest x-ray, abdominal x-ray, bladder and renal ultrasound. We'll also obtain abdominal laboratory studies. He was in agreement with this plan. He'll be given IV fluids, Toradol for symptomatic treatment. Vital signs within acceptable limits. Chest x-ray as interpreted by me shows no evidence of acute cardio Poni process. Heart is normal. No bony traumatic injury. No evidence of infiltrate. KUB x- ray as interpreted by me shows no acute intra-abdominal process. No bony traumatic injury. No evidence of obstruction, constipation. No evidence of stone. Renal ultrasound showed no evidence of hydronephrosis, mass, obstruction. Patient's laboratory studies which were started in triage are remarkable for a mildly elevated creatinine of 1.37. He does have a history of elevated creatinine. Urinalysis is negative for blood or infection. Covid and flu negative. No evidence of DKA. No other significant findings. On reevaluation, patient's pain has resolved. We discussed his workup. I did offer him a computed tomography scan, however declines at this time. He will return if pain becomes more severe. I recommended all up with his PCP. Patient was in agreement this plan. We did discuss that his pain is appearing to be musculoskeletal in nature but cannot rule out other etiology at this time. I instructed the patient to follow up with their PCP in the next 1-3 days. I explained that the patient should return to the emergency department if they experience any worsening symptoms. Strict return precautions were discussed with the patient. The patient expressed understanding of these instructions. I answered all questions that the patient had. The patient was discharged home in good condition with their prescriptions and follow up information. - Lab Data Result diagrams: 09/27/22 13:44 09/27/22 13:44 Lab Results 09/27/22 09/27/22 09/27/22 Range/Units 13:44 13:44 13:44 WBC 4.4 (3.8-10.6) k/uL RBC 4.38 (4.30-5.90) m/uL Hgb 13.8 (13.0-17.5) gm/dL Hct 38.3 L (39.0-53.0) % MCV 87.6 (80.0-100.0) fL MCH 31.5 (25.0-35.0) pg MCHC 36.0 (31.0-37.0) g/dL RDW 11.9 (11.5-15.5) % Plt Count 274 (150-450) k/uL MPV 8.1 Neutrophils % 40 % Lymphocytes % 48 % Monocytes % 6 % Eosinophils % 3 % Basophils % 1 % Neutrophils # 1.8 (1.3-7.7) k/uL Lymphocytes # 2.1 (1.0-4.8) k/uL Monocytes # 0.3 (0-1.0) k/uL Eosinophils # 0.1 (0-0.7) k/uL Basophils # 0.0 (0-0.2) k/uL Sodium 142 (137-145) mmol/L Potassium 3.9 (3.5-5.1) mmol/L Chloride 106 (98-107) mmol/L Carbon Dioxide 27 (22-30) mmol/L Anion Gap 9 mmol/L BUN 20 (9-20) mg/dL Creatinine 1.37 H (0.66-1.25) mg/dL Est GFR (CKD-EPI)AfAm 79 (>60 ml/min/1.73 sqM) Est GFR (CKD-EPI)NonAf 68 (>60 ml/min/1.73 sqM) Glucose 81 (74-99) mg/dL Plasma Lactic Acid Saad 1.5 (0.7-2.0) mmol/L Calcium 9.3 (8.4-10.2) mg/dL Total Bilirubin 0.5 (0.2-1.3) mg/dL AST 31 (17-59) U/L ALT 26 (4-49) U/L Alkaline Phosphatase 100 (38-126) U/L Total Protein 7.2 (6.3-8.2) g/dL Albumin 4.6 (3.5-5.0) g/dL Amylase 46 (30-110) U/L Lipase 13 L (23-300) U/L Urine Color Urine Appearance (Clear) Urine pH (5.0-8.0) Ur Specific [place] (1.001-1.035) Urine Protein (Negative) Urine Glucose (UA) (Negative) Urine Ketones (Negative) Urine Blood (Negative) Urine Nitrite (Negative) Urine Bilirubin (Negative) Urine Urobilinogen (<2.0) mg/dL Ur Leukocyte Esterase (Negative) Urine RBC (0-5) /hpf Urine WBC (0-5) /hpf Hyaline Casts (0-2) /lpf Urine Mucus (None) /hpf Coronavirus (PCR) (Not Detectd) Influenza Type A RNA (Not Detectd) Influenza Type B (PCR) (Not Detectd) 09/27/22 09/27/22 09/27/22 Range/Units 15:26 15:26 16:10 WBC (3.8-10.6) k/uL RBC (4.30-5.90) m/uL Hgb (13.0-17.5) gm/dL Hct (39.0-53.0) % MCV (80.0-100.0) fL MCH (25.0-35.0) pg MCHC (31.0-37.0) g/dL RDW (11.5-15.5) % Plt Count (150-450) k/uL MPV Neutrophils % % Lymphocytes % % Monocytes % % Eosinophils % % Basophils % % Neutrophils # (1.3-7.7) k/uL Lymphocytes # (1.0-4.8) k/uL Monocytes # (0-1.0) k/uL Eosinophils # (0-0.7) k/uL Basophils # (0-0.2) k/uL Sodium (137-145) mmol/L Potassium (3.5-5.1) mmol/L Chloride (98-107) mmol/L Carbon Dioxide (22-30) mmol/L Anion Gap mmol/L BUN (9-20) mg/dL Creatinine (0.66-1.25) mg/dL Est GFR (CKD-EPI)AfAm (>60 ml/min/1.73 sqM) Est GFR (CKD-EPI)NonAf (>60 ml/min/1.73 sqM) Glucose (74-99) mg/dL Plasma Lactic Acid Saad (0.7-2.0) mmol/L Calcium (8.4-10.2) mg/dL Total Bilirubin (0.2-1.3) mg/dL AST (17-59) U/L ALT (4-49) U/L Alkaline Phosphatase (38-126) U/L Total Protein (6.3-8.2) g/dL Albumin (3.5-5.0) g/dL Amylase (30-110) U/L Lipase (23-300) U/L Urine Color Yellow Urine Appearance Clear (Clear) Urine pH 6.5 (5.0-8.0) Ur Specific [place] 1.019 (1.001-1.035) Urine Protein 2+ H (Negative) Urine Glucose (UA) Trace H (Negative) Urine Ketones Negative (Negative) Urine Blood Negative (Negative) Urine Nitrite Negative (Negative) Urine Bilirubin Negative (Negative) Urine Urobilinogen <2.0 (<2.0) mg/dL Ur Leukocyte Esterase Negative (Negative) Urine RBC 2 (0-5) /hpf Urine WBC 2 (0-5) /hpf Hyaline Casts 1 (0-2) /lpf Urine Mucus Rare H (None) /hpf Coronavirus (PCR) Not Detected (Not Detectd) Influenza Type A RNA Not Detected (Not Detectd) Influenza Type B (PCR) Not Detected (Not Detectd) Disposition Clinical Impression: Abdominal pain of unknown etiology Disposition: HOME SELF-CARE Condition: Good Instructions (If sedation given, give patient instructions): Abdominal Pain (ED) Is patient prescribed a controlled substance at d/c from ED?: No Referrals: None,Stated [Primary Care Provider] - 1-2 days Time of Disposition: 17:00
[2022-09-27 17:31] VITALS: BP 115/73; PULSE 93; RESP 18
== END 2022-09-27 17:31 | disposition home or self-care (01) ==
LOC: EC 13:23
DX: R10.9 Unspecified abdominal pain (principal); E11.9 Type 2 diabetes mellitus without complications; E78.5 Hyperlipidemia, unspecified; Z79.4 Long term (current) use of insulin; Z20.822 Contact with and (suspected) exposure to COVID-19
CPT/HCPCS: 36415; 80053; 82150; 83605; 83690; 85025; 81001; 87502; 87635; 71046; 74018; 76770; 99284; 96374; 96361; J1885

== ENCOUNTER 2024-02-03 00:43 | Emergency (ER) | payer OTHER ==
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
[2024-02-03 01:34] VITALS: TEMP 98
[2024-02-03 01:36] LABS: Basophils # (A) 0.1 k/uL (0-0.2); Basophils % (A) 1 %; Eosinophils # (A) 0.1 k/uL (0-0.7); Eosinophils % (A) 2 %; HCT 39.5 % (39.0-53.0); HGB 13.6 gm/dL (13.0-17.5); Lymphocytes # (A) 1.8 k/uL (1.0-4.8); Lymphocytes % (A) 28 %; MCH 31.4 pg (25.0-35.0); MCHC 34.3 g/dL (31.0-37.0); MCV 91.4 fL (80.0-100.0); Mean Platelet Volume 8.3; Monocytes # (A) 0.4 k/uL (0-1.0); Monocytes % (A) 7 %; Neutrophils # (A) 3.8 k/uL (1.3-7.7); Neutrophils % (A) 61 %; Platelet Count 218 k/uL (150-450); RBC 4.32 m/uL (4.30-5.90); RDW 12.5 % (11.5-15.5); WBC 6.3 k/uL (3.8-10.6)
[2024-02-03 01:51] LABS: ALT 25 U/L (4-49); AST 24 U/L (17-59); Acetaminophen <10.0 ug/mL; African American GFR (CKD) 62 (>60 ml/min/1.73 sqM); Albumin 4.4 g/dL (3.5-5.0); Alcohol <10 mg/dL; Alkaline Phosphatase 82 U/L (38-126); Anion Gap 10 mmol/L; Blood Urea Nitrogen 28 mg/dL (9-20); Calcium 9.2 mg/dL (8.4-10.2); Carbon Dioxide 24 mmol/L (22-30); Chloride 107 mmol/L (98-107); Glucose 213 mg/dL (74-99); Non-African American GFR(CKD) 54 (>60 ml/min/1.73 sqM); Potassium 4.2 mmol/L (3.5-5.1); Salicylate 3.7 mg/dL; Sodium 141 mmol/L (137-145); Total Bilirubin 0.5 mg/dL (0.2-1.3); Total Protein 7.1 g/dL (6.3-8.2)
[2024-02-03 05:57] VITALS: BP 165/89; PULSE 88; RESP 16
== END 2024-02-03 10:40 | disposition home or self-care (01) ==
LOC: EC 00:43
DX: F32.A Depression, unspecified (principal)
CPT/HCPCS: 36415; 80053; 80143; 80179; 80320; 82075; 85025; 99285

== ENCOUNTER 2024-07-29 12:00 | Observation (INO) | payer OTHER ==
[2024-07-29 12:29] LABS: Glucose,Whole Blood 71 mg/dL (70-110)
--- NOTE | 2024-07-29 12:45 | ED ---
General Adult HPI - General Chief complaint: Headache Stated complaint: Dizziness,AMS Time Seen by Provider: 07/29/24 12:25 Source: patient, RN notes reviewed, old records reviewed Mode of arrival: ambulatory Limitations: no limitations - History of Present Illness Initial comments: This is a 33-year-old male who comes planes of a headache and expressive aphasia. Patient states it lasted about an hour and a half today where he was able to think about what he wanted to say but was unable to say. Patient states he continues to have a headache now. Patient denies any complaints other than the headache now. Patient denies numbness weakness. Patient has control of all 4 extremities he does feel little bit dizzy. Patient denies any recent fever or chills. Patient has any trauma. Patient denies any chest pain difficulty breathing shortness of breath. Patient has any abdominal pain patient has nausea vomiting or diarrhea. Patient states that expressive aphasia about 2- week goes but it did not last quite as long - Related Data Home Medications Medication Instructions Recorded Confirmed Insulin Aspart [Insulin Aspart See Protocol SQ ACHS 07/29/24 07/29/24 Flexpen] Insulin Glargine,Hum.rec.anlog 28 unit SQ HS 07/29/24 07/29/24 [Lantus Solostar Pen] Allergies Allergy/AdvReac Type Severity Reaction Status Date / Time peanut Allergy Unknown Verified 07/29/24 13:05 Review of Systems ROS Statement: Those systems with pertinent positive or pertinent negative responses have been documented in the HPI. ROS Other: All systems not noted in ROS Statement are negative. Past Medical History Past Medical History: Diabetes Mellitus, Hyperlipidemia History of Any Multi-Drug Resistant Organisms: None Reported Additional Past Surgical History / Comment(s): Right eyelid surgery, cataract left eye. Past Anesthesia/Blood Transfusion Reactions: No Reported Reaction Past Psychological History: No Psychological Hx Reported Smoking Status: Never smoker Past Alcohol Use History: Rare Past Drug Use History: None Reported - Past Family History Mother Family Medical History: No Reported History Father Family Medical History: No Reported History Sister(s) Family Medical History: No Reported History General Exam - General Exam Comments Initial Comments: GENERAL: Patient is well-developed and well-nourished. Patient is nontoxic and well- hydrated and is in mild distress. ENT: Neck is soft and supple. No significant lymphadenopathy is noted. Oropharynx is clear. Moist mucous membranes. Neck has full range of motion without eliciting any pain. EYES: The sclera were anicteric and conjunctiva were pink and moist. Extraocular movements were intact and pupils were equal round and reactive to light. Eyelids were unremarkable. PULMONARY: Unlabored respirations. Good breath sounds bilaterally. No audible rales rhonchi or wheezing was noted. CARDIOVASCULAR: There is a regular rate and rhythm without any murmurs gallops or rubs. ABDOMEN: Soft and nontender with normal bowel sounds. SKIN: Skin is clear with no lesions or rashes and otherwise unremarkable. NEUROLOGIC: Patient is alert and oriented x3. Cranial nerves II through XII are grossly intact. Motor and sensory are also intact. Normal speech, volume and content. Symmetrical smile. Cerebellar exam grossly intact. NIH is 0 MUSCULOSKELETAL: Normal extremities with adequate strength and full range of motion. No lower extremity swelling or edema. No calf tenderness. LYMPHATICS: No significant lymphadenopathy is noted PSYCHIATRIC: Normal psychiatric evaluation. Limitations: no limitations Course Vital Signs 07/29/24 07/29/24 12:24 14:34 Temperature 98.6 F Pulse Rate 100 98 Respiratory 20 20 Rate Blood Pressure 150/90 145/82 O2 Sat by Pulse 99 98 Oximetry Medical Decision Making - Medical Decision Making EKG is interpreted by myself. EKG shows a sinus rhythm at 94 bpm OK 149 QRS is 86 QT interval 321 QTc is 373. EKG shows no ST segment elevation or depression Was pt. sent in by a medical professional or institution (, PA, TELEPHONE LINEMAN, urgent care, hospital, or longterm...) When possible be specific @ -No Did you speak to anyone other than the patient for history (EMS, parent, family, police, friend...)? What history was obtained from this source @ -No Did you review nursing and triage notes (agree or disagree)? Why? @ -I reviewed and agree with nursing and triage notes Were old charts reviewed (outside hosp., previous admission, EMS record, old EKG, old radiological studies, urgent care reports/EKG's, longterm records)? Report findings @ -No old charts were reviewed Differential Diagnosis? @ -Differential CVA Ischemic stroke, hemorrhagic stroke, brain tumor, atypical migraine, Wernicke's encephalopathy, seizure, multiple sclerosis, meningitis, encephalitis, hypoglycemia, Guillain-Slaughter, electrolytes disturbance, myasthenia gravis.... This is not meant to be an all-inclusive list EKG interpreted by me (3pts min.). @ -As above X-rays interpreted by me (1pt min.). @ -chest x-ray shows no acute abnormality CT interpreted by me (1pt min.). @ -CT of the brain shows no acute abnormality. CT angiogram of the head and ne ck shows no acute abnormality U/S interpreted by me (1pt. min.). @ -None done What testing was considered but not performed or refused? (CT, X-rays, U/S, labs)? Why? @ -None What meds were considered but not given or refused? Why? @ -None Did you discuss the management of the patient with other professionals (professionals i.e. , PA, TELEPHONE LINEMAN, lab, RT, psych nurse, social services aide, agricultural consultant, teacher, supervisory cbp officer, supervisor case loading)? Give summary @ -I spoke with the [facility] agreed to admit the patient admit the patient wrote admitting orders I also spoke with Dr. Clarke he agreed to see the patient in consult Was smoking cessation discussed for >3mins.? @ -No Was critical care preformed (if so, how long)? @ -No Were there social determinants of health that impacted care today? How? (Homelessness, low income, unemployed, alcoholism, drug addiction, transportation, low edu. Level, literacy, decrease access to med. care, senior living, rehab)? @ -No Was there de-escalation of care discussed even if they declined (Discuss DNR or withdrawal of care, Hospice)? DNR status @ -No What co-morbidities impacted this encounter? (DM, HTN, Smoking, COPD, CAD, Cancer, CVA, ARF, Chemo, Hep., AIDS, mental health diagnosis, sleep apnea, morbid obesity)? @ -None Was patient admitted / discharged? Hospital course, mention meds given and route, prescriptions, significant lab abnormalities, going to OR and other pertinent info. @ -Patient had no further symptoms except for a mild headache while he was in the emergency department CAT scans and lab work were all negative patient will be admitted for further evaluation Undiagnosed new problem with uncertain prognosis? @ -No Drug Therapy requiring intensive monitoring for toxicity (Heparin, Nitro, Insulin, Cardizem)? @ -No Were any procedures done? @ -No Diagnosis/symptom? @ -TIA Acute, or Chronic, or Acute on Chronic? @ -Acute Uncomplicated (without systemic symptoms) or Complicated (systemic symptoms)? @ -Complicated Side effects of treatment? @ -No Exacerbation, Progression, or Severe Exacerbation? @ -No Poses a threat to life or bodily function? How? (Chest pain, [place], [place], pneumonia, PE, COPD, DKA, ARF, appy, cholecystitis, CVA, Diverticulitis, Homicidal, Tereza cidal, threat to staff... and all critical care pts) @ -Yes this could lead to a CVA and cause morbidity or mortality - Lab Data Result diagrams: 07/29/24 12:32 07/29/24 12:32 Lab Results 07/29/24 07/29/24 07/29/24 Range/Units 12:27 12:32 12:32 WBC 6.6 (3.8-10.6) k/uL RBC 4.73 (4.30-5.90) m/uL Hgb 14.3 (13.0-17.5) gm/dL Hct 42.6 (39.0-53.0) % MCV 90.1 (80.0-100.0) fL MCH 30.3 (25.0-35.0) pg MCHC 33.7 (31.0-37.0) g/dL RDW 11.7 (11.5-15.5) % Plt Count 248 (150-450) k/uL MPV 7.5 Neutrophils % 64 % Lymphocytes % 25 % Monocytes % 6 % Eosinophils % 2 % Basophils % 1 % Neutrophils # 4.2 (1.3-7.7) k/uL Lymphocytes # 1.7 (1.0-4.8) k/uL Monocytes # 0.4 (0-1.0) k/uL Eosinophils # 0.2 (0-0.7) k/uL Basophils # 0.0 (0-0.2) k/uL PT 10.3 (10.0-12.5) sec INR 0.9 (<1.2) APTT 23.3 (22.0-30.0) sec Sodium (137-145) mmol/L Potassium (3.5-5.1) mmol/L Chloride (98-107) mmol/L Carbon Dioxide (22-30) mmol/L Anion Gap mmol/L BUN (9-20) mg/dL Creatinine (0.66-1.25) mg/dL Est GFR (CKD-EPI)AfAm (>60 ml/min/1.73 sqM) Est GFR (CKD-EPI)NonAf (>60 ml/min/1.73 sqM) Glucose (74-99) mg/dL POC Glucose (mg/dL) 71 (70-110) mg/dL POC Glu House Superintendent ID February Calcium (8.4-10.2) mg/dL Total Bilirubin (0.2-1.3) mg/dL AST (17-59) U/L ALT (4-49) U/L Alkaline Phosphatase (38-126) U/L Creatine Kinase (55-170) U/L Troponin I (0.000-0.034) ng/mL Total Protein (6.3-8.2) g/dL Albumin (3.5-5.0) g/dL 07/29/24 07/29/24 Range/Units 12:32 12:32 WBC (3.8-10.6) k/uL RBC (4.30-5.90) m/uL Hgb (13.0-17.5) gm/dL Hct (39.0-53.0) % MCV (80.0-100.0) fL MCH (25.0-35.0) pg MCHC (31.0-37.0) g/dL RDW (11.5-15.5) % Plt Count (150-450) k/uL MPV Neutrophils % % Lymphocytes % % Monocytes % % Eosinophils % % Basophils % % Neutrophils # (1.3-7.7) k/uL Lymphocytes # (1.0-4.8) k/uL Monocytes # (0-1.0) k/uL Eosinophils # (0-0.7) k/uL Basophils # (0-0.2) k/uL PT (10.0-12.5) sec INR (<1.2) APTT (22.0-30.0) sec Sodium 139 (137-145) mmol/L Potassium 3.5 (3.5-5.1) mmol/L Chloride 96 L (98-107) mmol/L Carbon Dioxide 25 (22-30) mmol/L Anion Gap 18 mmol/L BUN 23 H (9-20) mg/dL Creatinine 1.51 H (0.66-1.25) mg/dL Est GFR (CKD-EPI)AfAm 70 (>60 ml/min/1.73 sqM) Est GFR (CKD-EPI)NonAf 60 (>60 ml/min/1.73 sqM) Glucose 70 L (74-99) mg/dL POC Glucose (mg/dL) (70-110) mg/dL POC Glu House Superintendent ID Calcium 9.8 (8.4-10.2) mg/dL Total Bilirubin 0.6 (0.2-1.3) mg/dL AST 26 (17-59) U/L ALT 26 (4-49) U/L Alkaline Phosphatase 72 (38-126) U/L Creatine Kinase 83 (55-170) U/L Troponin I <0.012 (0.000-0.034) ng/mL Total Protein 7.2 (6.3-8.2) g/dL Albumin 4.6 (3.5-5.0) g/dL Disposition Clinical Impression: TIA (transient ischemic attack) Disposition: ADMITTED IP TO THIS HOSP Referrals: None,Stated [Primary Care Provider] - 1-2 days Time of Disposition: 16:59
[2024-07-29 12:58] LABS: Basophils % (A) 1 %; Eosinophils # (A) 0.2 k/uL (0-0.7); Eosinophils % (A) 2 %; HCT 42.6 % (39.0-53.0); HGB 14.3 gm/dL (13.0-17.5); Lymphocytes # (A) 1.7 k/uL (1.0-4.8); Lymphocytes % (A) 25 %; MCH 30.3 pg (25.0-35.0); MCHC 33.7 g/dL (31.0-37.0); MCV 90.1 fL (80.0-100.0); Mean Platelet Volume 7.5; Monocytes # (A) 0.4 k/uL (0-1.0); Monocytes % (A) 6 %; Neutrophils # (A) 4.2 k/uL (1.3-7.7); Neutrophils % (A) 64 %; Platelet Count 248 k/uL (150-450); RBC 4.73 m/uL (4.30-5.90); RDW 11.7 % (11.5-15.5); WBC 6.6 k/uL (3.8-10.6)
[2024-07-29 13:20] LABS: ALT 26 U/L (4-49); AST 26 U/L (17-59); African American GFR (CKD) 70 (>60 ml/min/1.73 sqM); Albumin 4.6 g/dL (3.5-5.0); Alkaline Phosphatase 72 U/L (38-126); Anion Gap 18 mmol/L; Blood Urea Nitrogen 23 mg/dL (9-20); Calcium 9.8 mg/dL (8.4-10.2); Carbon Dioxide 25 mmol/L (22-30); Chloride 96 mmol/L (98-107); Creatine Kinase 83 U/L (55-170); Glucose 70 mg/dL (74-99); Non-African American GFR(CKD) 60 (>60 ml/min/1.73 sqM); Potassium 3.5 mmol/L (3.5-5.1); Sodium 139 mmol/L (137-145); Total Bilirubin 0.6 mg/dL (0.2-1.3); Total Protein 7.2 g/dL (6.3-8.2)
--- NOTE | 2024-07-29 13:26 | CT ---
EXAMINATION TYPE: CT brain wo con CT DLP: 1083 mGycm, Automated exposure control for dose reduction was used. DATE OF EXAM: 07/29/2024 1:15 PM COMPARISON: 03/29/2022. CLINICAL INDICATION: Male, 33 years old with history of Neuro deficit, acute, stroke suspected, WU wi th episode of loss of speech TECHNIQUE: Brain: Axial CT images of the brain were obtained with coronal and sagittal reformats created and rev iewed. Contrast used: None. Oral contrast used: None. FINDINGS: Brain: Extra-axial spaces: No abnormal extra-axial fluid collections. Ventricular system: Within normal limits Cerebral parenchyma: No acute intraparenchymal hemorrhage or mass effect. The sawyer-white junction is well differentiated. Cerebellum: Unremarkable. Mass effect: No evidence of midline shift. Intracranial vasculature: unremarkable Soft tissues: Normal. Calvarium/osseous structures: No depressed skull fracture. Paranasal sinuses and mastoid air cells: Mild scattered paranasal sinus disease. Visualized orbits: Orbital contents are intact. IMPRESSION: No acute intracranial process.
--- NOTE | 2024-07-29 13:40 | CT ---
EXAMINATION TYPE: CT angio head neck CT DLP: 380.5 mGycm, Automated exposure control for dose reduction was used. DATE OF EXAM: 07/29/2024 1:17 PM COMPARISON: CT same day. CLINICAL INDICATION: Male, 33 years old with history of Neuro deficit, acute, stroke suspected; PHH, WU with episode of loss of speech TECHNIQUE: Axially acquired helical CT angiogram of the head and neck was obtained with contrast. Axi al images are supplemented with 3D reconstructions and MIP images which were post-processed at an in dependent workstation. NASCET criteria used. Contrast used:65 mL of Isovue 370 with IV Contrast, Oral contrast used: None. FINDINGS: CTA HEAD: No evidence of acute intracranial hemorrhage, mass effect, or midline shift. The ventricles, sulci, a nd cisterns are unremarkable. The visualized portions of the internal carotid arteries, middle cerebral arteries, anterior cerebral arteries, and posterior cerebral arteries are patent. The basilar and vertebral arteries are patent. CTA NECK: Right Carotid System: The common carotid artery and external carotid artery are patent. The carotid bifurcation demonstrate s no evidence of hemodynamically significant stenosis. The remaining portions of the internal carotid artery demonstrate normal size without significant narrowing. Left Carotid System: The common carotid artery and external carotid artery are patent. The carotid bifurcation demonstrate s no evidence of hemodynamically significant stenosis. The remaining portions of the internal carotid artery demonstrate normal size without significant narrowing. Vertebral arteries are patent without evidence hemodynamically significant stenosis. There is a three-vessel aortic arch. The origins of the great vessels are patent. No evidence of hemo dynamically significant stenosis. IMPRESSION: 1. No evidence of dissection of the cervical internal carotid arteries or vertebral arteries or any e vidence of significant stenosis at the carotid bifurcations. 2. No evidence of intracranial high-grade stenosis or intracranial aneurysm.
[2024-07-29 13:50] LABS: INR 0.9 (<1.2); Partial Thromboplastin Time 23.3 sec (22.0-30.0); Prothrombin Time 10.3 sec (10.0-12.5)
--- NOTE | 2024-07-29 15:54 | XR ---
EXAMINATION TYPE: XR chest 2V DATE OF EXAM: 07/29/2024 COMPARISON: 09/27/2022 HISTORY: Altered mental status TECHNIQUE: Frontal and lateral views of the chest are obtained. FINDINGS: There is no focal air space opacity, pleural effusion, or pneumothorax seen. The cardiac silhouette size is within normal limits. The osseous structures are intact. IMPRESSION: No acute cardiopulmonary process. [facility] Workstation: VIANCA 07/29/2024 3:51 PM
--- NOTE | 2024-07-29 17:05 | P.CNNES ---
History of Present Illness Consult date: 07/29/24 Requesting physician: Catrachito Haas Reason for Consult: headache with speech difficulty History of Present Illness: This is a 33-year-old gentleman who presented emergency department because of headache with speech difficulty. He stated this is the third incidence that he has this. He had his first 1 in December 2023 then he had one 2 weeks ago and now he had a third episode. He states that starts with a headache over the left temporal region and it is a sharp headache and he feels the headache in severity possibly is about 5 out of 10 but denies any nausea any vomiting any photophobia and phonophobia then later he notices that he is having speech difficulty and he knows what he wants to say but it is coming out wrong or unable to get the words out. He denies any jerking of any extremity, any urinary incontinence any bowel incontinence any tongue bite. The headache can last between 4 hours to 12 hours or less. He states he checks his sugar level and it is never hypoglycemic is probably in the 70s to 80s. Denies any history of migraine in the past. Denies any history of seizure or stroke. Denies any family history of seizure. He states that he has a history of diabetes type I since the age of 33 years old. He stopped smoking in the beginning of the year. Some of the workup during this hospital visit consisted of: CBC with differential is unremarkable Chemistry panel is creatinine is 1.51, BUN 23, chlorides 96, serum glucose is 70 Otherwise rest of the chemistry panel is unremarkable CT of the head is reported as no acute intracranial process. I personally reviewed the CT and I agree with the report CT angiography of the head and neck is reported no evidence of dissection of cer vical internal carotid artery or vertebral artery or any evidence of significant stenosis at the carotid bifurcation. No evidence of intracranial high-grade stenosis or intracranial aneurysm. Review of Systems The positive and negative as per HPI. Past Medical History Past Medical History: Diabetes Mellitus, Hyperlipidemia History of Any Multi-Drug Resistant Organisms: None Reported Additional Past Surgical History / Comment(s): Right eyelid surgery, cataract left eye. Past Anesthesia/Blood Transfusion Reactions: No Reported Reaction Past Psychological History: No Psychological Hx Reported Smoking Status: Never smoker Past Alcohol Use History: Rare Past Drug Use History: None Reported - Past Family History Mother Family Medical History: No Reported History Father Family Medical History: No Reported History Sister(s) Family Medical History: No Reported History Medications and Allergies Home Medications Medication Instructions Recorded Confirmed Type Insulin Aspart [Insulin Aspart See Protocol SQ ACHS 07/29/24 07/29/24 History Flexpen] Insulin Glargine,Hum.rec.anlog 28 unit SQ HS 07/29/24 07/29/24 History [Lantus Solostar Pen] Allergies Allergy/AdvReac Type Severity Reaction Status Date / Time peanut Allergy Unknown Verified 07/29/24 13:05 Physical Examination - Vital Signs Vital Signs: Vital Signs Temp Pulse Resp BP Pulse Ox 07/29/24 14:34 98 20 145/82 98 07/29/24 12:24 98.6 F 100 20 150/90 99 Intake and Output 07/29/24 07/29/24 07/29/24 06:59 14:59 22:59 Other: Weight 54.431 kg GENERAL: The patient is lying in bed and is not in acute distress. NEUROLOGICAL: Higher mental function: The patient is awake, alert, oriented to self, place and time. Patient is following commands. No aphasia and no neglect. Cranial nerves: The pupils are round, equal and reactive to light and accommodation. Visual grimm are full to confrontation throughout. Extraocular movement is intact no nystagmus is noted. Facial sensation is normal to touch throughout. The facial strength is normal throughout. Hearing is normal bilaterally to hand rub. Tongue is midline and moved [id number] without any difficulty. No dysarthria is noted. Shoulder shrug is normal bilaterally. Motor: The strength is 5 over 5 throughout. Normal tone and bulk. Cerebellum: Normal finger to nose heel to ellsworth bilaterally. Sensation: Sensation is normal to touch throughout. Reflexes (right/left): 2+ throughout Plantars are downgoing bilaterally. Results - Laboratory Findings CBC and BMP: 07/29/24 12:32 07/29/24 12:32 Abnormal Lab Findings: Abnormal Labs 07/29/24 12:32 Chloride 96 L BUN 23 H Creatinine 1.51 H Glucose 70 L Assessment and Plan Assessment: This is a 33-year-old gentleman with a history of type 1 diabetes since age of 33 years old who presents because of recurrent headache with expressive aphasia. He stated that this is the third episode. First episode was in December 2023 and he stated it lasted for 12 hours in which she gets the headache then he has speech difficulty but he knows what he wants to say but it comes out wrong. The second episode was 2 weeks ago and his third episode was today. Today's episode lasted between 10 30-1 30 a.m. Recurrent Headache with expressive aphasia: Appears complicated migraine. CT of the head, CT angiography of the head and neck is unremarkable History of type 1 diabetes since the age of 33 years old Chronic kidney insufficiency Plan: I ordered MRI of the brain with and without. I ordered TSH, vitamin B12, folate Ordered hemoglobin A1c, urine drug screen I ordered routine EEG and if patient will stay here till Thursday then can pursue it. But if not then can be completed as outpatient if no recurrent symptoms and work-up is negative. Currently his headache and speech difficulty has and he does not want to be started on any migraine medication and wants to assess what workup reveals Defer the rest of the medical management to primary and other specialist Plan discussed with the patient. Dr. Ambriz will resume neurology service tomorrow AM. Time with Patient: Greater than 30
[2024-07-29 20:34] LABS: Glucose,Whole Blood 268 mg/dL (70-110)
[2024-07-29] MEDS: INSULIN ASPART (NovoLOG) 100 UNIT/ML VIAL SQ SCH (20:44)
[2024-07-29] MEDS: ASPIRIN 325 MG TAB PO STA (20:44)
[2024-07-29] MEDS: INSULIN DETEMIR (LEVEMIR) 100 UNIT/ML SYR SQ SCH (21:39)
[2024-07-30 06:28] LABS: Glucose,Whole Blood 269 mg/dL (70-110)
[2024-07-30 07:32] VITALS: BP 151/87; PULSE 77; RESP 16; TEMP 97.8
[2024-07-30] MEDS: ASPIRIN 325 MG TAB PO SCH (09:01)
[2024-07-30 10:36] LABS: BUN/Creat Ratio 11.38 Ratio (12.00-20.00); Blood Urea Nitrogen 18.2 mg/dL (9.0-27.0); Carbon Dioxide 26.9 mmol/L (21.6-31.8); Chloride 102 mmol/L (96-109); Glucose 365 mg/dL (70-110); LDL Cholesterol,Calculated 86.1 mg/dL (0.0-131.0); Potassium 3.7 mmol/L (3.5-5.5); Sodium 138 mmol/L (135-145)
[2024-07-30 10:37] VITALS: BMI 18.8
[2024-07-30 10:37] LABS: Calcium 8.6 mg/dL (8.7-10.3)
[2024-07-30 11:59] LABS: Glucose,Whole Blood 121 mg/dL (70-110)
[2024-07-30 13:12] LABS: Urine Alcohol Negative (Negative); Urine Barbiturate Negative (Negative); Urine Cocaine Negative (Negative); Urine Methadone Negative (Negative); Urine Opiates Negative (Negative); Urine Phencyclidine Negative (Negative)
--- NOTE | 2024-07-30 14:48 | P.PN ---
Subjective Progress Note Date: 07/30/24 Patient was initially seen by Dr. Kwabena Franco. Please refer to his note for details. Patient is a 33-year-old male with recurrent headache and expressive aphasia and this is the third episode that he presented with this time. Patient gets speech difficulty followed by a headache. The first episode lasted for about 12 hours in December 2023. 2 weeks ago it lasted for about 6 hours and this current event lasted for 2 hours. He has expressive aphasia without any other focal symptoms. Patient has poorly controlled diabetes. He was not taking any antiplatelet medication at home. Some of the workup during this hospital visit consisted of: CBC with differential is unremarkable Chemistry panel is creatinine is 1.51, BUN 23, chlorides 96, serum glucose is 70 Otherwise rest of the chemistry panel is unremarkable CT of the head is reported as no acute intracranial process. I personally reviewed the CT and I agree with the report CT angiography of the head and neck is reported no evidence of dissection of cervical internal carotid artery or vertebral artery or any evidence of significant stenosis at the carotid bifurcation. No evidence of intracranial high-grade stenosis or intracranial aneurysm. Objective - Vital Signs Vital signs: Vital Signs Temp 97.8 F 07/30/24 07:00 Pulse 77 07/30/24 07:00 Resp 16 07/30/24 13:07 BP 151/87 07/30/24 07:00 Pulse Ox 99 07/30/24 07:00 FiO2 Intake & Output 07/29/24 07/30/24 07/30/24 18:59 06:59 18:59 Intake Total 120 Balance 120 Weight 54.431 kg 54.431 kg 54.431 kg Intake: Oral 120 Other: Voiding Method Toilet # Voids 1 - Exam Mental status, speech and language functions are normal. Patient can name and repeat very well. Cranial nerves are normal. Visual grimm are full, face is symmetric and tongue protrudes to midline. No pronator drift and the strength is normal. No ataxia. Sensory equal. - Labs CBC & Chem 7: 07/29/24 12:32 07/30/24 02:39 Labs: Abnormal Lab Results - Last 24 Hours (Table) 07/29/24 07/29/24 07/29/24 Range/Units 12:32 17:02 20:32 Creatinine (0.6-1.5) mg/dL Est GFR (CKD-EPI) (>=60) BUN/Creatinine Ratio (12.00-20.00) Ratio Glucose (70-110) mg/dL POC Glucose (mg/dL) 268 H (70-110) mg/dL Hemoglobin A1c 11.9 H (<=6.0) % Calcium (8.7-10.3) mg/dL Triglycerides (0.00-149.00) mg/dL Vitamin B12 1823.0 H (200.0-944.0) pg/mL 07/30/24 07/30/24 07/30/24 Range/Units 02:39 06:27 11:58 Creatinine 1.6 H (0.6-1.5) mg/dL Est GFR (CKD-EPI) 58 L (>=60) BUN/Creatinine Ratio 11.38 L (12.00-20.00) Ratio Glucose 365 H (70-110) mg/dL POC Glucose (mg/dL) 269 H 121 H (70-110) mg/dL Hemoglobin A1c (<=6.0) % Calcium 8.6 L (8.7-10.3) mg/dL Triglycerides 192.00 H (0.00-149.00) mg/dL Vitamin B12 (200.0-944.0) pg/mL Assessment and Plan Assessment: This is a 33-year-old gentleman with a history of type 1 diabetes since age of 33 years old who presents because of recurrent headache with expressive aphasia. He stated that this is the third episode. First episode was in December 2023 and he stated it lasted for 12 hours in which he gets the headache then he has speech difficulty but he knows what he wants to say but it comes out wrong. The second episode was 2 weeks ago and his third episode was on the day of admission, which lasted between 10 30-1 30 a.m. Patient has no previous history of migraines. These episodes are highly concerning for TIA. CT of the head, CT angiography of the head and neck is unremarkable History of type 1 diabetes since the age of 33 years old Chronic kidney insufficiency Plan: Await MRI of the brain with and without. TSH pending, vitamin B12 1823, folate 16.8 Hemoglobin A1c 11.9, suggestive of poorly controlled diabetes. Recommend optimize control of diabetes to target A1c <7.0. Discussed with patient. Urine drug screen negative. Fasting lipid panel with cholesterol 166, LDL 86, HDL 41, triglycerides 192. Start Lipitor 40 mg at bedtime. Pending EEG. 2D echo with bubble study, rule out PFO. Patient symptoms have resolved. He wants to go home, as his father has birthday celebration today. Patient was informed that he cannot be discharged pending above test results. However he is not willing to stay. Patient was recommended to continue aspirin 325 mg daily. Patient was given prescription of Lipitor 40 mg at bedtime. He was recommended to follow-up with neurologist to have above test done. Patient signed out AGAINST MEDICAL ADVICE.
--- NOTE | 2024-07-30 14:58 | P.HPIM ---
History of Present Illness H&P Date: 07/29/24 Chief Complaint: Headache with speech difficulty 33-year-old gentleman who presented emergency department because of headache with speech difficulty. He stated this is the third incidence that he has this. He had his first 1 in December 2023 then he had one 2 weeks ago and now he had a third episode. He states that starts with a headache over the left temporal region and it is a sharp headache and he feels the headache in severity possibly is about 5 out of 10 but denies any nausea any vomiting any photophobia and phonophobia then later he notices that he is having speech difficulty and he knows what he wants to say but it is coming out wrong or unable to get the words out. He denies any jerking of any extremity, any urinary incontinence any bowel incontinence any tongue bite. The headache can last between 4 hours to 12 hours or less. He states he checks his sugar level and it is never hypoglycemic is probably in the 70s to 80s. Denies any history of migraine in the past. Denies any history of seizure or stroke. Denies any family history of seizure. He states that he has a history of diabetes type I since the age of 33 years old. He stopped smoking in the beginning of the year. Blood work completed in ED reveals CBC with differential is unremarkable; Chemistry panel is creatinine is 1.51, BUN 23, chlorides 96, serum glucose is 70 Otherwise rest of the chemistry panel is unremarkable CT of the head is reported as no acute intracranial process. I personally reviewed the CT and I agree with the report CT angiography of the head and neck is reported no evidence of dissection of cervical internal carotid artery or vertebral artery or any evidence of significant stenosis at the carotid bifurcation. No evidence of intracranial high-grade stenosis or intracranial aneurysm. Review of Systems REVIEW OF SYSTEMS: CONSTITUTIONAL: No fever, no malaise, no fatigue. HEENT: No recent visual problems or hearing problems. Denied any sore throat. CARDIOVASCULAR: No chest pain, orthopnea, PND, no palpitations, no syncope. PULMONARY: No shortness of breath, no cough, no hemoptysis. GASTROINTESTINAL: No diarrhea, no nausea, no vomiting, no abdominal pain. NEUROLOGICAL: No headaches, no weakness, no numbness. HEMATOLOGICAL: Denies any bleeding or petechiae. GENITOURINARY: Denies any burning micturition, frequency, or urgency. MUSCULOSKELETAL/RHEUMATOLOGICAL: Denies any joint pain, swelling, or any muscle pain. ENDOCRINE: Denies any polyuria or polydipsia. The rest of the 14-point review of systems is negative. Past Medical History Past Medical History: Diabetes Mellitus, Hyperlipidemia History of Any Multi-Drug Resistant Organisms: None Reported Additional Past Surgical History / Comment(s): Right eyelid surgery, cataract left eye. Past Anesthesia/Blood Transfusion Reactions: No Reported Reaction Past Psychological History: No Psychological Hx Reported Smoking Status: Never smoker Past Alcohol Use History: Rare Past Drug Use History: None Reported - Past Family History Mother Family Medical History: No Reported History Father Family Medical History: No Reported History Sister(s) Family Medical History: No Reported History Medications and Allergies Home Medications Medication Instructions Recorded Confirmed Type Insulin Aspart [Insulin Aspart See Protocol SQ ACHS 07/29/24 07/29/24 History Flexpen] Insulin Glargine,Hum.rec.anlog 28 unit SQ HS 07/29/24 07/29/24 History [Lantus Solostar Pen] Allergies Allergy/AdvReac Type Severity Reaction Status Date / Time peanut Allergy Unknown Verified 07/29/24 13:05 Physical Exam Vitals: Vital Signs Temp Pulse Resp BP Pulse Ox 07/29/24 14:34 98 20 145/82 98 07/29/24 12:24 98.6 F 100 20 150/90 99 Intake and Output 07/29/24 07/29/24 07/29/24 06:59 14:59 22:59 Other: Weight 54.431 kg GENERAL: Patient is well-developed and well-nourished. Patient is nontoxic and well-hydrated and is in mild distress. ENT: Neck is soft and supple. No significant lymphadenopathy is noted. Oropharynx is clear. Moist mucous membranes. Neck has full range of motion without eliciting any pain. EYES: The sclera were anicteric and conjunctiva were pink and moist. Extraocular movements were intact and pupils were equal round and reactive to light. Eyelids were unremarkable. PULMONARY: Unlabored respirations. Good breath sounds bilaterally. No audible rales rhonchi or wheezing was noted. CARDIOVASCULAR: There is a regular rate and rhythm without any murmurs gallops or rubs. ABDOMEN: Soft and nontender with normal bowel sounds. SKIN: Skin is clear with no lesions or rashes and otherwise unremarkable. NEUROLOGIC: Patient is alert and oriented x3. Cranial nerves II through XII are grossly intact. Motor and sensory are also intact. Normal speech, volume and content. Symmetrical smile. Cerebellar exam grossly intact. NIH is 0 MUSCULOSKELETAL: Normal extremities with adequate strength and full range of motion. No lower extremity swelling or edema. No calf tenderness. PSYCHIATRIC: Normal psychiatric evaluation. Results CBC & Chem 7: 07/29/24 12:32 07/30/24 02:39 Labs: Abnormal Lab Results - Last 24 Hours (Table) 07/29/24 Range/Units 12:32 Chloride 96 L (98-107) mmol/L BUN 23 H (9-20) mg/dL Creatinine 1.51 H (0.66-1.25) mg/dL Glucose 70 L (74-99) mg/dL Assessment and Plan Assessment: 1. Recurrent headaches with expressive aphasia; likely complicated migraines versus TIA --Patient had CT of the head and CTA of head and neck completed in ED which is unremarkable -Has been evaluated by neurology; MRI of the brain is ordered with and without contrast; order TSH, vitamin B12 and folic acid levels -HbA1c and urine drug screen is ordered -Neurology recommending EEG inpatient if patient stays in the hospital otherwise could be completed as an outpatient 2. Diabetes mellitus type 1; since age 3; we will continue with home regimen; monitor Accu-Cheks before every meal and at bedtime with insulin sliding scale 3. History of chronic kidney disease; creatinine at 1.6 which seems to be at baseline 4. Hyperlipidemia; not on any statin therapy DVT prophylaxis; SCDs CODE STATUS; full code
== END 2024-07-30 13:50 | disposition left against medical advice (07) ==
LOC: EC 12:00 → 6NMEDSUR 17:00
PROVIDERS: ADMIT Hospitalist; ATTEND Hospitalist
DX: R51.9 Headache, unspecified (principal); R47.01 Aphasia; E10.22 Type 1 diabetes mellitus with diabetic chronic kidney disease; N18.9 Chronic kidney disease, unspecified; E78.5 Hyperlipidemia, unspecified; Z87.891 Personal history of nicotine dependence; Z79.4 Long term (current) use of insulin; Z53.29 Procedure and treatment not carried out because of patient's decision for other reasons
CPT/HCPCS: 36415; 70450; 70496; 70498; 71046; 80048; 80053; 80061; 80306; 82550; 82607; 82746; 83036; 84443; 84484; 85025; 85610; 85730; 93005; 99285

== ENCOUNTER 2024-08-03 10:14 | Observation (INO) | payer OTHER ==
--- NOTE | 2024-08-03 11:03 | ED ---
Headache HPI - General Chief Complaint: Headache Stated Complaint: Headache Time Seen by Provider: 08/03/24 10:31 Source: patient, RN notes reviewed Mode of arrival: ambulatory Limitations: no limitations - History of Present Illness Initial Comments: 34-year-old male with a history of type 1 diabetes presents emergency department for chief complaint of migraine headaches. Patient states that this morning he woke up with a frontal headache. Patient was evaluated emergency department on 07/30/2024 with migraine headache and expressive aphasia. Patient was admitted to the hospital however left AGAINST MEDICAL ADVICE before MRI was completed. Patient denies neurological deficits Excedrin this morning with some relief. Patient states that he would like to be admitted at this time and complete MRI with neurological evaluation. - Related Data Home Medications Medication Instructions Recorded Confirmed Insulin Aspart [Insulin Aspart See Protocol SQ ACHS 07/29/24 08/03/24 Flexpen] Insulin Glargine,Hum.rec.anlog 28 unit SQ HS 07/29/24 08/03/24 [Lantus Solostar Pen] Allergies Allergy/AdvReac Type Severity Reaction Status Date / Time peanut Allergy Unknown Verified 08/03/24 13:26 Review of Systems ROS Statement: Those systems with pertinent positive or pertinent negative responses have been documented in the HPI. ROS Other: All systems not noted in ROS Statement are negative. Past Medical History Past Medical History: Diabetes Mellitus, Hyperlipidemia History of Any Multi-Drug Resistant Organisms: None Reported Additional Past Surgical History / Comment(s): Right eyelid surgery, cataract left eye. Past Anesthesia/Blood Transfusion Reactions: No Reported Reaction Past Psychological History: No Psychological Hx Reported Smoking Status: Never smoker Past Alcohol Use History: Rare Past Drug Use History: None Reported - Past Family History Mother Family Medical History: No Reported History Father Family Medical History: No Reported History Sister(s) Family Medical History: No Reported History General Exam Limitations: no limitations General appearance: alert, in no apparent distress Head exam: Present: atraumatic, normocephalic, normal inspection Eye exam: Present: normal appearance, PERRL, EOMI. Absent: scleral icterus, conjunctival injection, periorbital swelling ENT exam: Present: normal exam, mucous membranes moist Neck exam: Present: normal inspection. Absent: tenderness, meningismus, lymphadenopathy Respiratory exam: Present: normal lung sounds bilaterally. Absent: respiratory distress, wheezes, rales, rhonchi, stridor Cardiovascular Exam: Present: regular rate, normal rhythm, normal heart sounds. Absent: systolic murmur, diastolic murmur, rubs, gallop, clicks GI/Abdominal exam: Present: soft, normal bowel sounds. Absent: distended, tenderness, guarding, rebound, rigid Neurological exam: Present: alert, oriented X3, CN II-XII intact Skin exam: Present: warm, dry, intact, normal color. Absent: rash Course Vital Signs 08/03/24 08/03/24 08/03/24 10:19 12:56 15:45 Temperature 98.6 F 97.1 F L 97.4 F L Pulse Rate 85 79 77 Respiratory 18 18 Rate Blood Pressure 128/83 156/93 166/99 O2 Sat by Pulse 100 100 100 Oximetry Medical Decision Making - Medical Decision Making Was pt. sent in by a medical professional or institution ([facility], SOFT [employer]ER, urgent care, hospital, or fpc...) When possible be specific @ -No Did you speak to anyone other than the patient for history (EMS, parent, family, police, friend...)? What history was obtained from this source @ -No Did you review nursing and triage notes (agree or disagree)? Why? @ -I reviewed and agree with nursing and triage notes Were old charts reviewed (outside hosp., previous admission, EMS record, old EKG, old radiological studies, urgent care reports/EKG's, fpc records)? Report findings @ -I reviewed the patient's emergency department visit note from 07/29/2024 where he presented with headache and expressive aphasia and was admitted to internal medicine with neurology on consult for further evaluation. Patient left AGAINST MEDICAL ADVICE on 07/30/[address] of the head and CT angiography of the head and neck were negative for acute process. Differential Diagnosis (chest pain, altered mental status, abdominal pain women, abdominal pain men, vaginal bleeding, weakness, fever, dyspnea, syncope, headache, dizziness, GI bleed, back pain, seizure, CVA, palpatations, mental health, musculoskeletal)? @ -Differential Headache: Migraine, tension, cluster, carbon monoxide, central venous thrombosis, pension karma temporal arteritis, acute closure glaucoma, intercranial hemorrhage, mastoiditis, sinusitis, head injury, this is not meant to be an all-inclusive list. EKG interpreted by me (3pts min.). @ -none X-rays interpreted by me (1pt min.). @ -None done CT interpreted by me (1pt min.). @ -None done U/S interpreted by me (1pt. min.). @ -None done What testing was considered but not performed or refused? (CT, X-rays, U/S, labs)? Why? @ -CT imaging of the brain was considered but deferred at this time. Patient had recent CT imaging completed on 07/29/2024 with no acute acute process. Ad ditionally patient will be admitted with neurology on consult for MRI will be ordered. What meds were considered but not given or refused? Why? @ -None Did you discuss the management of the patient with other professionals (professionals i.e. , PA, SOFT BOARDER, lab, RT, psych nurse, social welfare administrator, aging department supervisor, teacher, chief environmental commitment officer, case checker)? Give summary @ -I spoke with [facility] physician Dr. Rudolph, reviewed the patient's presentation and recent hospital admission to his internal medicine group. Patient is excepted for repeat admission with neurology on consult Was smoking cessation discussed for >3mins.? @ -No Was critical care preformed (if so, how long)? @ -No Were there social determinants of health that impacted care today? How? (Homelessness, low income, unemployed, alcoholism, drug addiction, transportation, low edu. Level, literacy, decrease access to med. care, penitentiary, rehab)? @ -No Was there de-escalation of care discussed even if they declined (Discuss DNR or withdrawal of care, Hospice)? DNR status @ -No What co-morbidities impacted this encounter? (DM, HTN, Smoking, COPD, CAD, Can cer, CVA, ARF, Chemo, Hep., AIDS, mental health diagnosis, sleep apnea, morbid obesity)? @ -None Was patient admitted / discharged? Hospital course, mention meds given and route, prescriptions, significant lab abnormalities, going to OR and other pertinent info. @ -Admitted. 33-year-old male with migraine headache. On my evaluation the patient is noted to have photophobia with no neurological deficits. Patient is provided with Toradol. CBC Unremarkable, CMP reveals hyperglycemia at 158. Patient [id number] glucose was 62 and was provided with orange juice and sandwich at this time. With patient's history of expressive aphasia with migraine headache. Reviewed manage in the hospital for further evaluation with neurology on consult. discussed with Dr. Haas Undiagnosed new problem with uncertain prognosis? @ -No Drug Therapy requiring intensive monitoring for toxicity (Heparin, Nitro, Insulin, Cardizem)? @ -No Were any procedures done? @ -No Diagnosis/symptom? @ -migraine headache Acute, or Chronic, or Acute on Chronic? @ -Acute Uncomplicated (without systemic symptoms) or Complicated (systemic symptoms)? @ -Uncomplicated Side effects of treatment? @ -No Exacerbation, Progression, or Severe Exacerbation? @ -No Poses a threat to life or bodily function? How? (Chest pain, [place], [place], pneumonia, PE, COPD, DKA, ARF, appy, cholecystitis, CVA, Diverticulitis, Homicidal, Suicidal, threat to staff... and all critical care pts) @ -No - Lab Data Result diagrams: 08/03/24 11:20 08/03/24 11:20 Lab Results 08/03/24 08/03/24 08/03/24 Range/Units 11:20 11:20 11:27 WBC 4.7 (3.8-10.6) k/uL RBC 4.18 L (4.30-5.90) m/uL Hgb 12.9 L (13.0-17.5) gm/dL Hct 37.2 L (39.0-53.0) % MCV 88.9 (80.0-100.0) fL MCH 30.9 (25.0-35.0) pg MCHC 34.7 (31.0-37.0) g/dL RDW 11.7 (11.5-15.5) % Plt Count 233 (150-450) k/uL MPV 7.6 Neutrophils % 47 % Lymphocytes % 41 % Monocytes % 8 % Eosinophils % 2 % Basophils % 1 % Neutrophils # 2.2 (1.3-7.7) k/uL Lymphocytes # 1.9 (1.0-4.8) k/uL Monocytes # 0.4 (0-1.0) k/uL Eosinophils # 0.1 (0-0.7) k/uL Basophils # 0.0 (0-0.2) k/uL Sodium 140 (137-145) mmol/L Potassium 3.9 (3.5-5.1) mmol/L Chloride 106 (98-107) mmol/L Carbon Dioxide 26 (22-30) mmol/L Anion Gap 8 mmol/L BUN 18 (9-20) mg/dL Creatinine 1.33 H (0.66-1.25) mg/dL Est GFR (CKD-EPI)AfAm 81 (>60 ml/min/1.73 sqM) Est GFR (CKD-EPI)NonAf 70 (>60 ml/min/1.73 sqM) Glucose 58 L (74-99) mg/dL POC Glucose (mg/dL) 62 L (70-110) mg/dL POC Glu Commuter Train Operator ID Moy Mansfield Calcium 9.1 (8.4-10.2) mg/dL Magnesium 1.8 (1.6-2.3) mg/dL Total Bilirubin 0.6 (0.2-1.3) mg/dL AST 29 (17-59) U/L ALT 23 (4-49) U/L Alkaline Phosphatase 56 (38-126) U/L Total Protein 6.6 (6.3-8.2) g/dL Albumin 4.2 (3.5-5.0) g/dL 08/03/24 Range/Units 12:14 WBC (3.8-10.6) k/uL RBC (4.30-5.90) m/uL Hgb (13.0-17.5) gm/dL Hct (39.0-53.0) % MCV (80.0-100.0) fL MCH (25.0-35.0) pg MCHC (31.0-37.0) g/dL RDW (11.5-15.5) % Plt Count (150-450) k/uL MPV Neutrophils % % Lymphocytes % % Monocytes % % Eosinophils % % Basophils % % Neutrophils # (1.3-7.7) k/uL Lymphocytes # (1.0-4.8) k/uL Monocytes # (0-1.0) k/uL Eosinophils # (0-0.7) k/uL Basophils # (0-0.2) k/uL Sodium (137-145) mmol/L Potassium (3.5-5.1) mmol/L Chloride (98-107) mmol/L Carbon Dioxide (22-30) mmol/L Anion Gap mmol/L BUN (9-20) mg/dL Creatinine (0.66-1.25) mg/dL Est GFR (CKD-EPI)AfAm (>60 ml/min/1.73 sqM) Est GFR (CKD-EPI)NonAf (>60 ml/min/1.73 sqM) Glucose (74-99) mg/dL POC Glucose (mg/dL) 107 (70-110) mg/dL POC Glu Commuter Train Operator ID Judy Cronin Calcium (8.4-10.2) mg/dL Magnesium (1.6-2.3) mg/dL Total Bilirubin (0.2-1.3) mg/dL AST (17-59) U/L ALT (4-49) U/L Alkaline Phosphatase (38-126) U/L Total Protein (6.3-8.2) g/dL Albumin (3.5-5.0) g/dL Disposition Clinical Impression: Headache, Expressive aphasia Disposition: ADMITTED IP TO THIS [facility] Condition: Good Decision to Admit Reason: Admit from EC Decision Date: 08/03/24 Decision Time: 12:25
[2024-08-03 11:29] LABS: Glucose,Whole Blood 62 mg/dL (70-110)
[2024-08-03] MEDS: SODIUM CHLORIDE 0.9% 1,000 ML IV STA (11:34)
[2024-08-03] MEDS: KETOROLAC 15 MG/ML 1 ML VIAL IVP STA (11:45)
[2024-08-03 11:53] LABS: ALT 23 U/L (4-49); AST 29 U/L (17-59); African American GFR (CKD) 81 (>60 ml/min/1.73 sqM); Albumin 4.2 g/dL (3.5-5.0); Alkaline Phosphatase 56 U/L (38-126); Anion Gap 8 mmol/L; Blood Urea Nitrogen 18 mg/dL (9-20); Calcium 9.1 mg/dL (8.4-10.2); Carbon Dioxide 26 mmol/L (22-30); Chloride 106 mmol/L (98-107); Glucose 58 mg/dL (74-99); Magnesium 1.8 mg/dL (1.6-2.3); Non-African American GFR(CKD) 70 (>60 ml/min/1.73 sqM); Potassium 3.9 mmol/L (3.5-5.1); Sodium 140 mmol/L (137-145); Total Bilirubin 0.6 mg/dL (0.2-1.3); Total Protein 6.6 g/dL (6.3-8.2)
[2024-08-03] MEDS: diphenhydrAMINE 50 MG/ML 1 ML VIAL IVP STA (11:54)
[2024-08-03 11:58] LABS: Basophils % (A) 1 %; Eosinophils # (A) 0.1 k/uL (0-0.7); Eosinophils % (A) 2 %; HCT 37.2 % (39.0-53.0); HGB 12.9 gm/dL (13.0-17.5); Lymphocytes # (A) 1.9 k/uL (1.0-4.8); Lymphocytes % (A) 41 %; MCH 30.9 pg (25.0-35.0); MCHC 34.7 g/dL (31.0-37.0); MCV 88.9 fL (80.0-100.0); Mean Platelet Volume 7.6; Monocytes # (A) 0.4 k/uL (0-1.0); Monocytes % (A) 8 %; Neutrophils # (A) 2.2 k/uL (1.3-7.7); Neutrophils % (A) 47 %; Platelet Count 233 k/uL (150-450); RBC 4.18 m/uL (4.30-5.90); RDW 11.7 % (11.5-15.5); WBC 4.7 k/uL (3.8-10.6)
[2024-08-03 12:15] LABS: Glucose,Whole Blood 107 mg/dL (70-110)
[2024-08-03] MEDS ORDERED: IBUPROFEN 400 MG TAB PO PRN (12:26)
[2024-08-03] MEDS ORDERED: NALOXONE 0.4 MG/ML 1 ML VIAL IV PRN (12:26)
[2024-08-03] MEDS ORDERED: ACETAMINOPHEN TAB 325 MG TAB PO PRN (12:26)
[2024-08-03] MEDS ORDERED: DEXTROSE 50% SYRINGE 50 ML IVP PRN ×2 (13:34)
--- NOTE | 2024-08-03 13:35 | P.HPIM ---
History of Present Illness H&P Date: 08/03/24 History of present illness; patient is a 33-year-old gentleman with past medical his significant for diabetes mellitus who presented the ER for headache. Patient initially presented to the hospital on Thursday for expressive aphasia and headache, at that time patient was admitted and was supposed to get an MRI brain done but patient left AGAINST MEDICAL ADVICE. Patient stated that ever since he left the hospital his symptoms are resolved. Denied any aphasia. There was no complaint weakness of any extremity. Last night patient did complain of headache which was frontal, no complaint of blurred vision. There was no complaint of lightheadedness or dizziness. Patient denies any ataxia. Because of the headache patient became concerned and decided come back to the ER Initial lab work done in the ER showed WBC 4.7, hemoglobin 12.9, sodium 141 potassium 3.9, BUN 18, creatinine 1.33, glucose 58, Patient admitted to internal medicine service REVIEW OF SYSTEMS: CONSTITUTIONAL: No fever, no malaise, no fatigue. HEENT: No recent visual problems or hearing problems. Denied any sore throat. CARDIOVASCULAR: No chest pain, orthopnea, PND, no palpitations, no syncope. PULMONARY: No shortness of breath, no cough, no hemoptysis. GASTROINTESTINAL: No diarrhea, no nausea, no vomiting, no abdominal pain. NEUROLOGICAL: As mentioned above HEMATOLOGICAL: Denies any bleeding or petechiae. GENITOURINARY: Denies any burning micturition, frequency, or urgency. MUSCULOSKELETAL/RHEUMATOLOGICAL: Denies any joint pain, swelling, or any muscle pain. ENDOCRINE: Denies any polyuria or polydipsia. The rest of the 14-point review of systems is negative. PHYSICAL EXAMINATION: GENERAL: The patient is alert and oriented x3, not in any acute distress. Well developed, well nourished. HEENT: Pupils are round and equally reacting to light. EOMI. No scleral icterus. No conjunctival pallor. Normocephalic, atraumatic. No pharyngeal erythema. No thyromegaly. CARDIOVASCULAR: S1 and S2 present. No murmurs, rubs, or gallops. PULMONARY: Chest is clear to auscultation, no wheezing or crackles. ABDOMEN: Soft, nontender, nondistended, normoactive bowel sounds. No palpable organomegaly. MUSCULOSKELETAL: No joint swelling or deformity. EXTREMITIES: No cyanosis, clubbing, or pedal edema. NEUROLOGICAL: Gross neurological examination did not reveal any focal deficits. SKIN: No rashes. Assessment and plan Recurrent headache with expressive aphasia Insulin-dependent diabetes mellitus Monitor vital signs Monitor CBC Monitor CMP Continue telemetry monitoring Ordered neurochecks Ordered blood sugar levels monitoring, ordered sliding scale insulin Ordered MRI brain Ordered neurology consult Labs and medication were reviewed.. Continue same treatment. Continue with symptomatic treatment. Resume home medication. Monitor labs and vitals. DVT and GI prophylaxis. Further recommendations as per clinical course of the patient Dictation was produced using [employer] dictation software. please excuse any grammatical, word or spelling errors. Past Medical History Past Medical History: Diabetes Mellitus, Hyperlipidemia History of Any Multi-Drug Resistant Organisms: None Reported Additional Past Surgical History / Comment(s): Right eyelid surgery, cataract left eye. Past Anesthesia/Blood Transfusion Reactions: No Reported Reaction Past Psychological History: No Psychological Hx Reported Smoking Status: Never smoker Past Alcohol Use History: Rare Past Drug Use History: None Reported - Past Family History Mother Family Medical History: No Reported History Father Family Medical History: No Reported History Sister(s) Family Medical History: No Reported History Medications and Allergies Home Medications Medication Instructions Recorded Confirmed Type Insulin Aspart [Insulin Aspart See Protocol SQ ACHS 07/29/24 08/03/24 History Flexpen] Insulin Glargine,Hum.rec.anlog 28 unit SQ HS 07/29/24 08/03/24 History [Lantus Solostar Pen] Allergies Allergy/AdvReac Type Severity Reaction Status Date / Time peanut Allergy Unknown Verified 08/03/24 13:26 Physical Exam Vitals: Vital Signs Temp Pulse Resp BP Pulse Ox 08/03/24 12:56 97.1 F L 79 156/93 100 08/03/24 10:19 98.6 F 85 18 128/83 100 Intake and Output 08/02/24 08/03/24 08/03/24 22:59 06:59 14:59 Other: Weight 54.431 kg Results CBC & Chem 7: 08/03/24 11:20 08/03/24 11:20 Labs: Abnormal Lab Results - Last 24 Hours (Table) 08/03/24 08/03/24 08/03/24 Range/Units 11:20 11:20 11:27 RBC 4.18 L (4.30-5.90) m/uL Hgb 12.9 L (13.0-17.5) gm/dL Hct 37.2 L (39.0-53.0) % Creatinine 1.33 H (0.66-1.25) mg/dL Glucose 58 L (74-99) mg/dL POC Glucose (mg/dL) 62 L (70-110) mg/dL
[2024-08-03] MEDS: ATORVASTATIN 40 MG TAB PO STA (15:44)
[2024-08-03] MEDS: ASPIRIN 81 MG PO STA (15:45)
[2024-08-03 17:25] LABS: Glucose,Whole Blood 99 mg/dL (70-110)
[2024-08-03] MEDS: INSULIN ASPART (NovoLOG) 100 UNIT/ML VIAL SQ SCH (17:27)
[2024-08-03 21:14] LABS: Glucose,Whole Blood 220 mg/dL (70-110)
[2024-08-03] MEDS: INSULIN DETEMIR (LEVEMIR) 100 UNIT/ML SYR SQ SCH (21:37)
[2024-08-04 06:16] LABS: Glucose,Whole Blood 52 mg/dL (70-110)
[2024-08-04 06:43] LABS: Glucose,Whole Blood 71 mg/dL (70-110)
[2024-08-04 07:39] LABS: Glucose,Whole Blood 81 mg/dL (70-110)
[2024-08-04] MEDS: ASPIRIN 81 MG PO SCH (08:31)
[2024-08-04 08:34] LABS: Basophils # (A) 0.05 X 10*3/uL (0.00-0.10); Eosinophils % (A) 3.9 %; HCT 33.5 % (39.6-50.0); HGB 11.7 g/dL (13.0-17.0); Lymphocytes # (A) 2.61 X 10*3/uL (0.90-5.00); Lymphocytes % (A) 51.2 %; MCH 31.1 pg (27.0-32.0); MCHC 34.9 g/dL (32.0-37.0); MCV 89.1 FL (80.0-97.0); Mean Platelet Volume 10.7 FL (9.5-12.2); Monocytes # (A) 0.47 X 10*3/uL (0.20-1.00); Monocytes % (A) 9.2 %; NRBC Per 100 WBC 0 X 10*3/uL (0.00-0.01); Neutrophils # (A) 1.76 X 10*3/uL (1.80-7.70); Neutrophils % (A) 34.5 %; Platelet Count 235 X 10*3/uL (140-440); RBC 3.76 X 10*6/uL (4.40-5.60); RDW 11.9 % (11.5-14.5)
[2024-08-04 08:58] LABS: ALT 21 U/L (10-49); AST 17 U/L (14-35); Albumin 3.8 g/dL (3.8-4.9); Alkaline Phosphatase 61 U/L (41-126); BUN/Creat Ratio 12.27 Ratio (12.00-20.00); Blood Urea Nitrogen 18.4 mg/dL (9.0-27.0); Calcium 8.4 mg/dL (8.7-10.3); Carbon Dioxide 27.3 mmol/L (21.6-31.8); Chloride 109 mmol/L (96-109); Globulin 1.9 g/dL (1.6-3.3); Glucose 56 mg/dL (70-110); Potassium 3.8 mmol/L (3.5-5.5); Sodium 145 mmol/L (135-145); Total Bilirubin <0.2 mg/dL (0.3-1.2); Total Protein 5.7 g/dL (6.2-8.2)
--- NOTE | 2024-08-04 10:04 | P.CNNES ---
History of Present Illness Consult date: 08/03/24 Requesting physician: Nevin Irizarry Reason for Consult: expressive aphasia, headaches History of Present Illness: Patient is a 33-year-old right-handed male came to the hospital today at 10:14 AM for evaluation of headache and speech difficulty. Patient was just recently seen in hospital consultation by neurology team on 07/29/2024, and I have followed up on 07/30/2024. Patient signed out AGAINST MEDICAL ADVICE. He came back for further evaluation for another episode. Patient has recurrent episodes of headache and expressive aphasia and now this 1 is the third episode that he has presented. The first episode occurred in December 2023, that lasted for about 12 hours. About 2 weeks ago he had a second episode lasted for about 6 hours. On 07/29/2024 he had an episode lasted for 2 hours. He gets expressive aphasia without any other focal symptoms. Patient does have poorly controlled diabetes. Patient does not take any antiplatelet medication at home. Patient states that he slept from 3 PM to 8:30 PM yesterday. He woke up with a headache. He watched TV and then went to sleep again. He woke up this morning at 7:45 AM with a headache which she rated 5/10 involving bifrontal region. He had some speech difficulty for 15 minutes from 8:30 AM to 8:45 AM. No other focal symptoms. Therefore he decided come back to the hospital. He states that he had no problem seeing, he knew what he wanted to say but did not know what to say. He could not get words out. Lasted for about 5 to 10 minutes. Vital signs on arrival blood pressure 128/83 pulse 85 temperature 98.6. Blood test shows normal CBC, basic metabolic panel, hepatic panel. Patient states that he drinks socially. Denies any tobacco any marijuana or drug use. He has type 1 diabetes since childhood. Patient denies any history of migraines. Patient although signed out AGAINST MEDICAL ADVICE on 07/30/2024 as he wanted to attend his father's birthday democrat, and was given prescription of Lipitor and was recommended to take aspirin but he has not been taking any of those medications. Review of Systems All pertinent positive and negatives mentioned in HPI. Otherwise completely ne gative. Denies any chest pain shortness of breath. Denies any other focal symptoms besides headache and transient speech difficulty. Past Medical History Past Medical History: Diabetes Mellitus, Hyperlipidemia History of Any Multi-Drug Resistant Organisms: None Reported Additional Past Surgical History / Comment(s): Right eyelid surgery, cataract left eye. Past Anesthesia/Blood Transfusion Reactions: No Reported Reaction Past Psychological History: No Psychological Hx Reported Smoking Status: Never smoker Past Alcohol Use History: Rare Past Drug Use History: None Reported - Past Family History Mother Family Medical History: No Reported History Father Family Medical History: No Reported History Sister(s) Family Medical History: No Reported History Medications and Allergies Home Medications Medication Instructions Recorded Confirmed Type Insulin Aspart [Insulin Aspart See Protocol SQ ACHS 07/29/24 08/03/24 History Flexpen] Insulin Glargine,Hum.rec.anlog 28 unit SQ HS 07/29/24 08/03/24 History [Lantus Solostar Pen] Allergies Allergy/AdvReac Type Severity Reaction Status Date / Time peanut Allergy Unknown Verified 08/03/24 13:26 Physical Examination - Vital Signs Vital Signs: Vital Signs Temp Pulse Resp BP Pulse Ox 08/03/24 12:56 97.1 F L 79 156/93 100 08/03/24 10:19 98.6 F 85 18 128/83 100 Intake and Output 08/03/24 08/03/24 08/03/24 06:59 14:59 22:59 Other: Weight 54.431 kg Patient is a young male, in no acute distress. Patient is alert awake oriented to time place and person. Speech and language functions are normal. Patient can name and repeat very well. No aphasia or dysarthria. Attention, concentration and fund of knowledge is adequate. On cranial nerve examination, pupils are equal, round and reacting to light, visual grimm are full on confrontation, with no neglect on double simultaneous stimulation. Extraocular muscles are intact with no nystagmus. Face is symmetric, tongue protrudes to the midline. Palatal elevation and sensation normal, hearing and shoulder shrug normal, facial sensation normal. On muscle strength testing, there is no pronator drift and the strength is normal in arms and legs distally and proximally. Deep tendon reflexes are symmetric but very hypoactive all over. Plantars downgoing. Sensory to touch is equal with no neglect on double simultaneous stimulation. Cerebellar function showed no ataxia for [id number] testing. No dysdia dochokinesia. No ataxia for [id number] testing on either side. Tone and bulk of muscles normal. Gait deferred.. On general examination, there is no carotid bruit or murmur, S1-S2 audible. Chest is clear on consultation. Abdomen is soft nontender. No organomegaly, bowel sounds present. Peripheral pulses are present. No peripheral edema. Results - Laboratory Findings CBC and BMP: 08/04/24 03:28 08/04/24 03:28 Abnormal Lab Findings: Abnormal Labs 08/03/24 08/03/24 08/03/24 11:20 11:20 11:27 RBC 4.18 L Hgb 12.9 L Hct 37.2 L Creatinine 1.33 H Glucose 58 L POC Glucose (mg/dL) 62 L Assessment and Plan Assessment: * Recurrent episodes of headache, followed by transient speech difficulty. Patient denies any personal or family history of migraines. Rule out TIA. Doubt migraines. * Diabetes, uncontrolled * Hyperlipidemia Plan: MRI of the brain without contrast, evaluate for acute CVA 2-D echo with bubble study to rule out PFO CT angiography of the head and neck is reported no evidence of dissection of cervical internal carotid artery or vertebral artery or any evidence of s ignificant stenosis at the carotid bifurcation. No evidence of intracranial high-grade stenosis or intracranial aneurysm. Fasting a.m. lipid panel with cholesterol 166, LDL 86, HDL 41, triglycerides 192. Patient to be given Lipitor 40 mg x 1 dose then 20 mg daily. Hemoglobin A1c 11.9. Recommend optimize control of diabetes to target A1c <7.0. Blood pressure is well-controlled. Patient is given aspirin 325 mg loading dose now, followed by 81 mg daily. EEG, rule out epileptiform activity. Neuro checks every shift. Telemetry monitoring rule out any arrhythmia DVT prophylaxis: Patient is low risk, as he is ambulatory. Neurology will continue to follow. Thank you for the consult.
--- NOTE | 2024-08-04 10:05 | CA ---
Transthoracic Echo Report Name: Reul Schneider Age: 33 Gender: M : 1990 Exam Date: 08/03/2024 16:30 Exam Location: [facility] Ht (in): 67 Wt (lb): 120 Ordering Physician: Jeimy Ambriz MD Attending/Referring Phys: [employer] Meka Pino RDCS Procedure CPT: Indications: tia Cardiac Hx: Technical Quality: Fair Contrast 1: Agitated Saline Total Dose (mL): 20 Contrast 2: Total Dose (mL): MEASUREMENTS (Male / Female) Normal Values 2D ECHO LV Diastolic Diameter PLAX 4.1 cm 4.2 - 5.9 / 3.9 - 5.3 cm LV Systolic Diameter PLAX 2.9 cm IVS Diastolic Thickness 1.0 cm 0.6 - 1.0 / 0.6 - 0.9 cm LVPW Diastolic Thickness 1.0 cm 0.6 - 1.0 / 0.6 - 0.9 cm LV Relative Wall Thickness 0.5 RV Internal Dim ED PLAX 3.8 cm LVOT Diameter 1.6 cm LA Volume 34.0 cm??? 18 - 58 / 22 - 52 cm??? LA Volume Index 21.3 cm???/m??? 16 - 28 cm???/m??? M-MODE Aortic Root Diameter MM 2.4 cm LA Systolic Diameter MM 2.9 cm LA Ao Ratio MM 1.2 AV Cusp Separation MM 1.8 cm DOPPLER AV Peak Velocity 143.6 cm/s AV Peak Gradient 8.2 mmHg AV Mean Velocity 102.6 cm/s AV Mean Gradient 4.6 mmHg AV Velocity Time Integral 28.5 cm LVOT Peak Velocity 121.5 cm/s LVOT Peak Gradient 5.9 mmHg LVOT Velocity Time Integral 18.9 cm LVOT Stroke Volume 38.8 cm??? LVOT Stroke Volume Index 23.8 ml/m??? AV Area Cont Eq vti 1.4 cm??? AV Area Cont Eq pk 1.7 cm??? MV Area PHT 4.9 cm??? Mitral E Point Velocity 89.6 cm/s Mitral A Point Velocity 70.3 cm/s Mitral E to A Ratio 1.3 MV Deceleration Time 156.1 ms MV E' Velocity 9.2 cm/s Mitral E to MV E' Ratio 9.7 FINDINGS Left Ventricle Normal Left ventricular size, wall thickness, systolic function with no obvious regional wall motion abnormalities. Normal Left ventricular diastolic filling pattern. Left ventricular ejection fraction is estimated at 55-60 %. Right Ventricle normal RV size and fn Right ventricular systolic pressure within normal limits. Right Atrium Normal right atrial size. Negative agitated saline bubble study for right to left shunt. Left Atrium Normal left atrial size. Mitral Valve Structurally normal mitral valve. Mild mitral regurgitation. Aortic Valve Trileaflet aortic valve. No aortic valve stenosis or regurgitation. Tricuspid Valve Structurally normal tricuspid valve. Mild tricuspid regurgitation. Pulmonic Valve Structurally normal pulmonic valve. Trace pulmonic regurgitation. Pericardium No pericardial effusion. Aorta Normal size aortic root and proximal ascending aorta. CONCLUSIONS Diagnosis: Expressive aphasia/CVA/TIA Normal LV size and function Normal RV size and function No evidence for [id number] shunting on bubble study Previewed by: Dr. Martell Spear MD (Electronically Signed) Final Date: 04 August 2024 10:04
--- NOTE | 2024-08-04 10:33 | MR ---
EXAMINATION TYPE: MR brain wo/w con DATE OF EXAM: 08/04/2024 10:20 AM CLINICAL INDICATION: Male, 33 years old with history of headaches, visual disturbances; PHH, Almost C onstant Headache since Jan 09 COMPARISON: 07/29/2024 TECHNIQUE: Multi planar, multi sequence imaging was performed through the brain including: T1, T2, In version recovery, susceptibility weighted imaging and gradient echo imaging and Diffusion weighted im aging. The patient was then given intravenous contrast and multi planar, T1 fat-saturation images wer e obtained. IV Contrast: 5.5ml cc Gadavist FINDINGS: The sawyer-white junctions, ventricular system, basal cisterns appear unremarkable. Diffusion-weighted imaging shows no evidence of restricted diffusion to suggest acute/subacute infarct. Intracranial ar terial flow voids are maintained. Midline structures show no abnormality. Left posterior frontal/queta etal region developmental venous anomaly.. The susceptibility weighted images do not reveal any evide nce for micro-hemorrhage. After administration of gadolinium, no abnormal enhancement is seen. The bone marrow signal is within normal limits. Paranasal sinuses and mastoid air cells: No significant paranasal sinus disease. Visualized orbits: Orbital contents are intact. IMPRESSION: 1. No evidence of intracranial mass, acute/subacute infarct, or abnormal enhancement. 2. Left posterior frontal/parietal developmental venous anomaly. [facility], , 08/04/2024 10:31 AM
[2024-08-04 11:09] LABS: Glucose,Whole Blood 152 mg/dL (70-110)
--- NOTE | 2024-08-04 12:52 | P.PN ---
Subjective Progress Note Date: 08/04/24 patient is a 33-year-old gentleman with past medical his significant for diabetes mellitus who presented the ER for headache. Patient initially presented to the hospital on Thursday for expressive aphasia and headache, at that time patient was admitted and was supposed to get an MRI brain done but patient left AGAINST MEDICAL ADVICE. Patient stated that ever since he left the hospital his symptoms are resolved. Denied any aphasia. There was no complaint weakness of any extremity. Last night patient did complain of headache which was frontal, no complaint of blurred vision. There was no complaint of lightheadedness or dizziness. Patient denies any ataxia. Because of the headache patient became concerned and decided come back to the ER Initial lab work done in the ER showed WBC 4.7, hemoglobin 12.9, sodium 141 potassium 3.9, BUN 18, creatinine 1.33, glucose 58, Patient admitted to internal medicine service 08/04. Patient seen and examined. States he feels much better. Denies any head ache REVIEW OF SYSTEMS: CONSTITUTIONAL: No fever, no malaise,. CARDIOVASCULAR: No chest pain, no palpitations, no syncope. PULMONARY: No shortness of breath, no cough, GASTROINTESTINAL: No diarrhea, no nausea, no vomiting, no abdominal pain. NEUROLOGICAL: No headaches, no weakness, PHYSICAL EXAMINATION: GENERAL: The patient is alert and oriented x3, not in any acute distress. Well developed, well nourished. HEENT: Pupils are round and equally reacting to light. EOMI. No scleral icterus. No conjunctival pallor. Normocephalic, atraumatic. No pharyngeal erythema. No thyromegaly. CARDIOVASCULAR: S1 and S2 present. No murmurs, rubs, or gallops. PULMONARY: Chest is clear to auscultation, no wheezing or crackles. ABDOMEN: Soft, nontender, nondistended, normoactive bowel sounds. No palpable organomegaly. MUSCULOSKELETAL: No joint swelling or deformity. EXTREMITIES: No cyanosis, clubbing, or pedal edema. NEUROLOGICAL: Gross neurological examination did not reveal any focal deficits. SKIN: No rashes. Assessment and plan Recurrent headache with expressive aphasia Insulin-dependent diabetes mellitus Monitor vital signs Monitor CBC Monitor CMP Continue telemetry monitoring Ordered neurochecks Ordered blood sugar levels monitoring, ordered sliding scale insulin Ordered MRI brain EEG ordered Ordered 2D echo Ordered neurology consult Labs and medication were reviewed.. Continue same treatment. Continue with symptomatic treatment. Resume home medication. Monitor labs and vitals. DVT and GI prophylaxis. Further recommendations as per clinical course of the patient Dictation was produced using [employer] dictation software. please excuse any grammatical, word or spelling errors. Objective - Vital Signs Vital signs: Vital Signs Temp 97.7 F 08/04/24 07:00 Pulse 83 08/04/24 07:00 Resp 18 08/04/24 08:00 BP 170/93 08/04/24 07:00 Pulse Ox 99 08/04/24 07:00 FiO2 Intake & Output 08/03/24 08/04/24 08/04/24 18:59 06:59 18:59 Weight 54.431 kg 54.431 kg Other: # Voids 1 1 - Labs CBC & Chem 7: 08/04/24 03:28 08/04/24 03:28 Labs: Abnormal Lab Results - Last 24 Hours (Table) 08/03/24 08/03/24 08/03/24 Range/Units 11:20 11:20 11:27 RBC 4.18 L (4.30-5.90) m/uL Hgb 12.9 L (13.0-17.5) gm/dL Hct 37.2 L (39.0-53.0) % Neutrophils # (1.80-7.70) X 10*3/uL Creatinine 1.33 H (0.66-1.25) mg/dL Glucose 58 L (74-99) mg/dL POC Glucose (mg/dL) 62 L (70-110) mg/dL Hemoglobin A1c (<=6.0) % Calcium (8.7-10.3) mg/dL Total Bilirubin (0.3-1.2) mg/dL Total Protein (6.2-8.2) g/dL 08/03/24 08/04/24 08/04/24 Range/Units 21:12 03:28 03:28 RBC 3.76 L (4.30-5.90) m/uL Hgb 11.7 L (13.0-17.5) gm/dL Hct 33.5 L (39.0-53.0) % Neutrophils # 1.76 L (1.80-7.70) X 10*3/uL Creatinine (0.66-1.25) mg/dL Glucose (74-99) mg/dL POC Glucose (mg/dL) 220 H (70-110) mg/dL Hemoglobin A1c 11.7 H (<=6.0) % Calcium (8.7-10.3) mg/dL Total Bilirubin (0.3-1.2) mg/dL Total Protein (6.2-8.2) g/dL 08/04/24 08/04/24 Range/Units 03:28 06:14 RBC (4.30-5.90) m/uL Hgb (13.0-17.5) gm/dL Hct (39.0-53.0) % Neutrophils # (1.80-7.70) X 10*3/uL Creatinine (0.66-1.25) mg/dL Glucose 56 L (74-99) mg/dL POC Glucose (mg/dL) 52 L (70-110) mg/dL Hemoglobin A1c (<=6.0) % Calcium 8.4 L (8.7-10.3) mg/dL Total Bilirubin <0.2 L (0.3-1.2) mg/dL Total Protein 5.7 L (6.2-8.2) g/dL
[2024-08-04 14:09] VITALS: BP 159/92; PULSE 74; RESP 16; TEMP 98.4
[2024-08-04 14:59] VITALS: BMI 18.8
[2024-08-04] MEDS: levETIRAcetam 500 MG TAB PO SCH (16:13)
[2024-08-04 17:13] LABS: Glucose,Whole Blood 222 mg/dL (70-110)
[2024-08-04] MEDS ORDERED: ATORVASTATIN 20 MG TAB PO SCH (21:00)
--- NOTE | 2024-08-04 23:13 | EEG ---
ELECTROENCEPHALOGRAM REPORT PREAMBLE: This is a 33-year-old male with recurrent episodes of speech difficulty. EEG FINDINGS: This is a 21-channel digital EEG recorded with video component, utilizing 10/20 international system with referential and bipolar montages. Background consists of well developed, well regulated moderate voltage activity in 11 hertz alpha. Background is posterior dominant and reactive to eye opening and closing. There is very frequent rhythmic and high-amplitude delta slowing seen in the left frontal temporal region. Intermittent sharply controlled waves in the same distribution were also seen. Photic driving response was not clearly seen. Drowsiness and then stage 2 sleep was seen with appearance of vertex waves and sleep spindles. No electrographic seizure was recorded. IMPRESSION: This is an abnormal EEG due to the presence of intermittent focal and rhythmic slowing and some sharp appearing waves in the left frontal temporal region. This is suggestive of focal cortical neuronal dysfunction, which may have underlying cortical irritability and tendency for seizure. MMZANAL / IJN: [id number] /
--- NOTE | 2024-08-05 11:43 | P.PN ---
Subjective Progress Note Date: 08/04/24 Patient was seen for follow-up. Patient is laying comfortably in the bed. Offers no new complaints. Patient is slightly somnolent. He did becomes awake and alert fully oriented. Objective - Vital Signs Vital signs: Vital Signs Temp 98.4 F 08/04/24 13:35 Pulse 74 08/04/24 14:00 Resp 16 08/04/24 14:00 BP 159/92 08/04/24 13:35 Pulse Ox 99 08/04/24 13:35 FiO2 Intake & Output 08/03/24 08/04/24 08/04/24 18:59 06:59 18:59 Intake Total 118 Balance 118 Weight 54.431 kg 54.431 kg 54.431 kg Intake: Oral 118 Other: # Voids 1 2 - Exam Normal. - Labs CBC & Chem 7: 08/04/24 03:28 08/04/24 03:28 Labs: Abnormal Lab Results - Last 24 Hours (Table) 08/03/24 08/04/24 08/04/24 Range/Units 21:12 03:28 03:28 RBC 3.76 L (4.40-5.60) X 10*6/uL Hgb 11.7 L (13.0-17.0) g/dL Hct 33.5 L (39.6-50.0) % Neutrophils # 1.76 L (1.80-7.70) X 10*3/uL Glucose (70-110) mg/dL POC Glucose (mg/dL) 220 H (70-110) mg/dL Hemoglobin A1c 11.7 H (<=6.0) % Calcium (8.7-10.3) mg/dL Total Bilirubin (0.3-1.2) mg/dL Total Protein (6.2-8.2) g/dL 08/04/24 08/04/24 08/04/24 Range/Units 03:28 06:14 11:07 RBC (4.40-5.60) X 10*6/uL Hgb (13.0-17.0) g/dL Hct (39.6-50.0) % Neutrophils # (1.80-7.70) X 10*3/uL Glucose 56 L (70-110) mg/dL POC Glucose (mg/dL) 52 L 152 H (70-110) mg/dL Hemoglobin A1c (<=6.0) % Calcium 8.4 L (8.7-10.3) mg/dL Total Bilirubin <0.2 L (0.3-1.2) mg/dL Total Protein 5.7 L (6.2-8.2) g/dL Assessment and Plan Assessment: * Recurrent episodes of headache, followed by transient speech difficulty. Stroke ruled out. TIA workup negative so far. EEG was abnormal, concerning for possible focal simple partial seizure. * Diabetes, uncontrolled * Hyperlipidemia Plan: MRI of the brain with and without contrast revealed no evidence of intracranial mass, acute/subacute infarct or abnormal enhancement. Left posterior frontal/parietal developmental venous anomaly. I personally reviewed MRI agree with the findings. 2-D echo revealed normal left ventricular size, wall thickness and systolic function with LVEF 55 to 60%. Normal right and left atrial size. Negative agitated saline bubble study for [id number] shunt. No valvular abnormalities. CT angiography of the head and neck is reported no evidence of dissection of cervical internal carotid artery or vertebral artery or any evidence of significant stenosis at the carotid bifurcation. No evidence of intracranial high-grade stenosis or intracranial aneurysm. Fasting a.m. lipid panel with cholesterol 166, LDL 86, HDL 41, triglycerides 192. Patient to be given Lipitor 40 mg x 1 dose then 20 mg daily. Hemoglobin A1c 11.9. Recommend optimize control of diabetes to target A1c <7.0. Blood pressure is well-controlled. Patient is given aspirin 325 mg loading dose now, followed by 81 mg daily. EEG was abnormal due to presence of intermittent focal and rhythmic slowing and some sharp appearing waves in the left frontal temporal region. This is suggestive of focal cortical neuronal dysfunction, which may have underlying cortical irritability and tendency for seizures. Patient's EEG was abnormal. Suspect focal seizures. We will start Keppra 500 mg twice daily. First dose given before discharge. Patient's clinical symptoms did not have any loss of awareness or loss of consciousness. He therefore cannot technically drive. However he has been started on new medication. Recommended hold off on driving, until cleared by his primary physician, make sure he is tolerating it well. Neurologically clear for discharge. Patient strongly recommended to follow-up with neurologist outpatient for further management of possible seizure disorder.
--- NOTE | 2024-08-21 15:23 | P.DS ---
Providers Date of admission: 08/03/24 13:18 Expected date of discharge: 08/04/24 Attending physician: Everardo Ashford MD Consults: 08/03/24 12:26 Consult Physician Routine Consulting Provider: Jeimy Ambriz Consult Reason/Comments: expressive aphasia, headaches Do you want consulting provider notified?: Yes, Notify in am Primary care physician: Stated None Hospital Course: Discharge diagnoses; Recurrent headache with expressive aphasia Seizures Insulin-dependent diabetes mellitus Hospital course; patient is a 33-year-old gentleman with past medical his significant for diabetes mellitus who presented the ER for headache. Patient initially presented to the hospital on Thursday for expressive aphasia and headache, at that time patient was admitted and was supposed to get an MRI brain done but patient left AGAINST MEDICAL ADVICE. Patient stated that ever since he left the hospital his symptoms are resolved. Denied any aphasia. There was no complaint weakness of any extremity. Last night patient did complain of headache which was frontal, no complaint of blurred vision. There was no complaint of lightheadedness or dizziness. Patient denies any ataxia. Because of the headache patient became concerned and decided come back to the ER Initial lab work done in the ER showed WBC 4.7, hemoglobin 12.9, sodium 141 potassium 3.9, BUN 18, creatinine 1.33, glucose 58, Patient admitted to internal medicine service 08/04. Patient seen and examined. States he feels much better. Denies any headache. MRI brain negative for any evidence of intracranial mass, acute/subac thelma infarct. EEG suggestive of intermittent focal and rhythmic slowing and some sharp appearing waves in the left frontal temporal region. Neurology started patient on Keppra. Patient to follow-up outpatient with PCP and neurology PHYSICAL EXAMINATION: GENERAL: The patient is alert and oriented x3, not in any acute distress. Well developed, well nourished. HEENT: Pupils are round and equally reacting to light. EOMI. No scleral icterus. No conjunctival pallor. Normocephalic, atraumatic. No pharyngeal erythema. No thyromegaly. CARDIOVASCULAR: S1 and S2 present. No murmurs, rubs, or gallops. PULMONARY: Chest is clear to auscultation, no wheezing or crackles. ABDOMEN: Soft, nontender, nondistended, normoactive bowel sounds. No palpable organomegaly. MUSCULOSKELETAL: No joint swelling or deformity. EXTREMITIES: No cyanosis, clubbing, or pedal edema. NEUROLOGICAL: Gross neurological examination did not reveal any focal deficits. SKIN: No rashes. Dictation was produced using [employer] dictation software. please excuse any grammatical, word or spelling errors. Patient Condition at Discharge: Good Plan - Discharge Summary New Discharge Prescriptions: New Aspirin 81 mg PO DAILY #30 tab Atorvastatin [Lipitor] 20 mg PO HS #30 tab Continue Insulin Glargine,Hum.rec.anlog [Lantus Solostar Pen] 28 unit SQ HS Insulin Aspart [Insulin Aspart Flexpen] See Protocol SQ [facility] Discharge Medication List Insulin Aspart [Insulin Aspart Flexpen] See Protocol SQ [facility] 07/29/24 [History] Insulin Glargine,Hum.rec.anlog [Lantus Solostar Pen] 28 unit SQ HS 07/29/24 [History] Aspirin 81 mg PO DAILY #30 tab 08/04/24 [Rx] Atorvastatin [Lipitor] 20 mg PO HS #30 tab 08/04/24 [Rx] Follow up Appointment(s)/Referral(s): [facility] [NON-STAFF] - 1-2 days [facility] [NON-STAFF] - 1-2 days Juvencio Reeves MD [Medical Doctor] - 1 Week None,Stated [Primary Care Provider] - 1-2 days Patient Instructions/Handouts: Nonepileptic Seizures (IP), New-Onset Seizure in Adults (GEN) Discharge/Stand Alone Forms: Area PCPs Discharge Disposition: HOME SELF-CARE
== END 2024-08-04 17:32 | disposition home or self-care (01) ==
LOC: EC 10:14 → 6NMEDSUR 13:18
PROVIDERS: ADMIT Internal Medicine; ATTEND Internal Medicine
DX: R51.9 Headache, unspecified (principal); R47.01 Aphasia; E11.65 Type 2 diabetes mellitus with hyperglycemia; R56.9 Unspecified convulsions; E78.5 Hyperlipidemia, unspecified; Z79.4 Long term (current) use of insulin
CPT/HCPCS: 36415; 70553; 80053; 83036; 83735; 85025; 93306; 95819; 96361; 96374; 99284